=== PATIENT | female | born 1940 | race Caucasian/White ===

== ENCOUNTER 2016-08-11 15:30 | Emergency (ER) | payer BC ==
--- NOTE | 2016-08-11 15:35 | EDPHY ---
H & P HPI/ROS: CHIEF COMPLAINT: Stroke alert. HISTORY OF PRESENT ILLNESS: The patient is a 75-year-old female with history of atrial fibrillation on Coumadin who presents via EMS as a stroke alert. Onset of right-sided paralysis, facial droop, and aphasia at 1500 (30 minutes ago). According to her son, last INR 1 week ago was 1.4, and her Coumadin was increased. Per EMS, blood glucose was normal on arrival. No change in neuro status during transport. No prior history of CVA. On arrival she is not speaking or following commands. History is thus severely limited. REVIEW OF SYSTEMS: Unobtainable due to patient's clinical condition. Past Medical/Surgical History: Atrial fibrillation. Social History: Here with son. Physical Exam: General Appearance: Alert, looking around, not following commands. Left gaze preference Eyes: Pupils equal and round, no conjunctival pallor ENT, Mouth: Mucous membranes moist Neck: Normal inspection Respiratory: Lungs are clear to auscultation anteriorly Cardiovascular: Irregularly irregular rate and rhythm Gastrointestinal: Abdomen is soft, no apparent tenderness Neurological: Alert, right facial droop, left gaze preference, right hemiparesis, positive Babinski sign on right, No response to painful stimuli on right upper extremity or lower extremity Skin: Warm and dry Extremities: No swelling Psychiatric: Unable to determine Constitutional: Initial Vital Signs Temperature (C) 36.3 C 08/11/16 15:59 Heart Rate 88 08/11/16 15:59 Respiratory Rate 16 08/11/16 15:59 Blood Pressure 164/101 H 08/11/16 15:59 O2 Sat (%) 93 08/11/16 15:59 O2 Delivery Mode Nasal Cannula O2 (L/minute) 2 Allergies/Adverse Reactions: No Known Allergies Allergy (Unverified 08/11/16 16:00) Home Medications: Medication Instructions Recorded Atenolol 08/11/16 Coumadin 08/11/16 Lisinopril 08/11/16 Prozac 10 MG (*) 08/11/16 Wellbutrin Sr 08/11/16 Medical Decision Making - Diagnostics EKG Interpretation: EKG interpreted by me reveals atrial fibrillation, ventricular rate 83, left bundle branch block Imaging Results: Imaging Impressions Head CT 08/11/16 15:32 Impression: 1. Findings consistent with remote cortical infarct involving the right middle cerebral artery territory. 2. Atrophy and probable extensive white matter small vessel ischemic change evidenced by white matter low-attenuation. 3. Acute left maxillary sinusitis. Head CTA 08/11/16 15:55 Impression: 1. Minimal calcified plaque at the carotid bulb bilaterally without encroachment upon the lumen. 2. Tortuosity of the proximal CCA bilaterally as well as mid to distal ICA bilaterally below the skull base. 3. Thrombus in the left M1 segment of the middle cerebral artery with decreased contrast enhancement of peripheral MCA branches. 4. Early changes of acute infarct left insular cortex and anterior left temporal lobe to posterior frontal lobe. 5. Remote infarct right posterior temporal lobe to occipital lobe. Note: All calculations were performed using NASCET criteria. These findings were discussed by telephone with Dr. Aaliyah Pryor at 1622hrs. Neck CTA 08/11/16 15:55 Impression: 1. Minimal calcified plaque at the carotid bulb bilaterally without encroachment upon the lumen. 2. Tortuosity of the proximal CCA bilaterally as well as mid to distal ICA bilaterally below the skull base. 3. Thrombus in the left M1 segment of the middle cerebral artery with decreased contrast enhancement of peripheral MCA branches. 4. Early changes of acute infarct left insular cortex and anterior left temporal lobe to posterior frontal lobe. 5. Remote infarct right posterior temporal lobe to occipital lobe. Note: All calculations were performed using NASCET criteria. These findings were discussed by telephone with Dr. Aaliyah Pryor at 1622hrs. Imaging: Discussed imaging studies w/ meat sales and storage manager Radiologist ED Course/Re-evaluation: I met EMS on arrival and obtained a report from the ceramic designer. This 75-year-old woman presents as a stroke alert with 30 minutes of right-sided paralysis, facial droop, and aphasia. She does not follow my commands but is alert. She was sent to CT for immediate imaging. ISTAT obtained. An IV was established and labs ordered. Her son reports that her INR last week was 1.4 but she had her Coumadin dose was increased at that time. 1539: Consulted with Dr. Gatica, neurologist from [facility]. She will consult with the patient via the robot when she finishes her current case. 1551: Dr. Gatica consulting with patient via stroke robot. She recommends immediate CTA and this has been ordered. I consulted with the radiologist at this time. He reports no acute hemorrhage. I independently reviewed the patient' s CT on the PACS system. Please see Imaging section for radiologist report. 1558: NIH stroke score 27. Consulted with Dr. Gatica. She recommends TPA treatment if the INR is less than 1.7. If the patient has a large clot seen on CTA, she will be flown to [facility]. The patient's family is in agreement with this plan. I reviewed the patient's laboratory studies. INR low at 1.46. TPA ordered per stroke protocol. Medevac has been placed on standby. 1604: Consulted with Dr. Gatica. I have informed her of the INR results. She agrees with TPA administration and [facility] transfer of patient to [facility]. I discussed this plan with the patient's family at this time. 1611: Reassessed patient as she returned from CT. Her neurological exam is unchanged at this time. I discussed with her her transfer to [facility]. She raises her eyebrows and mumbles and seems to understand. 1623: CT-A results conveyed to me by Dr. Luis, radiology. TPA infusing, flight team in room to transport the pt to [facility]. Pt's neuro exam unchanged. BP trending higher, flight team will give Nicardipine IV prn. This patient utilized 45 minutes of critical care time exclusive of unbundled procedures. Differential Diagnosis: Altered mental status including but not limited to intracranial hemorrhage, hypoglycemia, infectious process, electrolyte abnormality, head injury and intoxicants. - Data Points Laboratory Results: Laboratory Results 08/11/16 15:43 08/11/16 15:43 08/11/16 08/11/16 08/11/16 15:43 15:43 15:37 WBC 9.09 10^3/uL 10^3/uL (3.80-9.50) RBC 4.78 10^6/uL 10^6/uL (4.18-5.33) Hgb 15.3 g/dL g/dL (12.6-16.3) Hct 46.4 % % (38.0-47.0) MCV 97.1 fL fL (81.5-99.8) MCH 32.0 pg pg (27.9-34.1) MCHC 33.0 g/dL g/dL (32.4-36.7) RDW 14.8 % % (11.5-15.2) Plt Count 280 10^3/uL 10^3/uL (150-400) MPV 11.0 fL fL (8.7-11.7) Neut % (Auto) 72.0 % % (39.3-74.2) Lymph % (Auto) 13.5 % L % (15.0-45.0) [place] % (Auto) 10.8 % % (4.5-13.0) Eos % (Auto) 3.1 % % (0.6-7.6) Baso % (Auto) 0.3 % % (0.3-1.7) Nucleat RBC Rel Count 0.0 % % (0.0-0.2) Absolute Neuts (auto) 6.54 10^3/uL H 10^3/uL (1.70-6.50) Absolute Lymphs (auto) 1.23 10^3/uL 10^3/uL (1.00-3.00) Absolute Monos (auto) 0.98 10^3/uL H 10^3/uL (0.30-0.80) Absolute Eos (auto) 0.28 10^3/uL 10^3/uL (0.03-0.40) Absolute Basos (auto) 0.03 10^3/uL 10^3/uL (0.02-0.10) Absolute Nucleated RBC 0.00 10^3/uL 10^3/uL (0-0.01) Immature Gran % 0.3 % % (0.0-1.1) Immature Gran # 0.03 10^3/uL 10^3/uL (0.00-0.10) PT 17.7 SEC H SEC (12.0-15.0) INR 1.46 H (0.83-1.16) APTT 31.6 SEC SEC (23.0-38.0) Sodium 139 mEq/L mEq/L (134-144) Potassium 3.9 mEq/L mEq/L (3.5-5.2) Chloride 101 mEq/L mEq/L (97-110) Carbon Dioxide 28 mEq/l mEq/l (22-31) Anion Gap 10 mEq/L mEq/L (8-16) BUN 18 mg/dL mg/dL (7-23) Creatinine 1.1 mg/dL H mg/dL (0.6-1.0) Estimated GFR 49 Glucose 170 mg/dL H mg/dL (70-100) Calcium 8.8 mg/dL mg/dL (8.5-10.4) Troponin I 0.015 ng/mL ng/mL (0-0.034) Medications Given: Discontinued Medications Alteplase, Recombinant (Activase) 8.76420 mg 0.09 mg/kg (8.29525 mg) IV ONCE ONE PRN Reason: Protocol Stop: 08/11/16 16:04 Last Admin: 08/11/16 16:18 Dose: 8.24326 mg Alteplase, Recombinant (Activase) 74.78418 mg 0.81 mg/kg (74.31697 mg) IV ONCE ONE PRN Reason: Protocol Stop: 08/11/16 16:04 Last Admin: 08/11/16 16:19 Dose: 74.37815 mg Sodium Chloride (Ns) 50 mls @ 0 mls/hr IV EDNOW ONE PRN Reason: Per Protocol Stop: 08/11/16 16:04 Last Admin: 08/11/16 17:01 Dose: 50 mls Departure - Departure Disposition: Acute [facility] Not [facility] Clinical Impression: CVA (cerebral vascular accident) Qualifiers: CVA mechanism: unspecified Qualified Code(s): I63.9 - Cerebral infarction, unspecified Condition: Critical Referrals: Patient,NotPresent [Unknown] - As per Instructions Report Scribed for: Aaliyah Pryor Report Scribed by: Jaguar Zhao Date of Report: 08/11/16 Time of Report: 15:35 Physician Review and Approval Statement: 08/11/16 15:35 Portions of this note were transcribed by a medical advisor. I personally performed a history, physical exam, medical decision making, and confirmed accuracy of information the transcribed note.
--- NOTE | 2016-08-11 15:52 | CPEKG ---
Heart Rate: 83 RR Interval: 723 QRSD Interval: 126 QT Interval: 380 QTC Interval: 447 QRS [place]: -51 T Wave [place]: 3 EKG Severity - ABNORMAL ECG - EKG Impression: ATRIAL FIBRILLATION, V-RATE 76-93 EKG Impression: LEFT BUNDLE BRANCH BLOCK Electronically Signed By: Rika Hernández 11-Aug-2016 20:05:46
[2016-08-11 15:53] LABS: % IMMATURE GRANULYOCYTES 0.3 % (0.0-1.1); ABSOLUTE IMMATURE GRANULOCYTES 0.03 10^3/uL (0.00-0.10); ADD DIFF? NO; ADD MORPH? NO; ADD SCAN? NO; ATYPICAL LYMPHOCYTE FLAG 0 (0-99); FRAGMENT RBC FLAG 0 (0-99); HEMATOCRIT 46.4 % (38.0-47.0); HEMOGLOBIN 15.3 g/dL (12.6-16.3); LEFT SHIFT FLG 0 (0-99); LIPEMIA HEMOLYSIS FLAG 80 (0-99); MEAN CELL VOLUME 97.1 fL (81.5-99.8); PLATELET CLUMPS FLAG 10 (0-99); PLATELET COUNT 280 10^3/uL (150-400); RED BLOOD CELL COUNT 4.78 10^6/uL (4.18-5.33); RED CELL DISTRIBUTION WIDTH 14.8 % (11.5-15.2)
[2016-08-11] MEDS ORDERED: IOPAMIDOL (ISOVUE 370) 100 ML BTL IV ONE (15:55)
[2016-08-11 16:01] LABS: INR 1.46 (0.83-1.16); PROTIME(PATIENT) 17.7 SEC (12.0-15.0)
[2016-08-11 16:02] LABS: ANION GAP 10 mEq/L (8-16); CALCIUM 8.8 mg/dL (8.5-10.4); CARBON DIOXIDE 28 mEq/l (22-31); CHLORIDE 101 mEq/L (97-110); CREATININE 1.1 mg/dL (0.6-1.0); GLOMERULAR FILTRATION RATE 49; GLUCOSE 170 mg/dL (70-100); POTASSIUM 3.9 mEq/L (3.5-5.2); SODIUM 139 mEq/L (134-144)
[2016-08-11 16:02] LABS: APTT 31.6 SEC (23.0-38.0)
[2016-08-11] MEDS ORDERED: NS 50 ML IV ONE (16:03)
[2016-08-11] MEDS ORDERED: ALTEPLASE 100 MG/100 ML VIAL IV ONE ×2 (16:03→16:04)
[2016-08-11] MEDS ORDERED: ALTEPLASE 1 MG/ML SYR IV ONE (16:03)
[2016-08-11 16:14] LABS: TROPONIN I 0.015 ng/mL (0-0.034)
[2016-08-11 16:27] VITALS: O2SAT 93
[2016-08-11 16:54] VITALS: PULSE 82; RESP 18
[2016-08-11 17:30] VITALS: TEMP 97.7
[2016-08-11 17:33] VITALS: BP 156/104
== END 2016-08-11 16:40 | disposition short-term general hospital (02) ==
LOC: EDUNIT#
DX: I63.9 Cerebral infarction, unspecified (principal); Z79.01 Long term (current) use of anticoagulants
CPT/HCPCS: 82947-QW; J2997; Q9967

== ENCOUNTER 2016-08-23 12:26 | Inpatient (IN) | payer BC, OTHER ==
--- NOTE | 2016-08-23 15:41 | GHP ---
[f rep st] HISTORY AND PHYSICAL POST ADMISSION PHYSICIAN EVALUATION AND REHABILITATION TREATMENT PLAN DATE OF ADMISSION: 08/23/2016 DATE OF EVALUATION: August 23, 2016. TIME OF EVALUATION: 1245. REFERRING FACILITY: [facility]. REFERRING PHYSICIAN: Dr. Oliveros IMPAIRMENT GROUP: 1.2 DATE OF ONSET: 08/11/2016. CONSULTING PHYSICIANS: There were consultations with Podiatry, Neurology, and Neuro-Radiology. 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 ETIOLOGIC DIAGNOSIS: Right body involvement (left brain). DATE OF SURGERY: 08/11/2016. HISTORY OF PRESENT ILLNESS: The patient presented initially to the [facility] emergency department approximately half an hour following onset of right-sided paralysis, facial droop, and aphasia. She has atrial fibrillation and was on warfarin. Her last INR approximately a week previously was 1.4, and her warfarin had been adjusted. She was not speaking and not following commands. She was treated with tPA thrombolysis and then transferred to [facility] for possible neurointerventional radiologic procedure. At the [facility] emergency department, head CT showed evidence of an old infarct involving the right middle cerebral artery as well as cerebral atrophy and probable extensive white matter small vessel ischemic disease. CT angiogram showed minimal calcified plaque in the carotid bulbs bilaterally, a thrombus in the left M1 segment of the middle cerebral artery, and early changes of acute infarct in the left insular cortex and anterior left temporal lobe to posterior left frontal lobe, and a remote infarct of the right posterior temporal lobe to the occipital lobe. At [facility], she had an interventional radiologic procedure which opened up the left middle cerebral artery occlusion. Her NIH stroke scale on presentation at [facility] was 28. Subsequently it was 23 following her procedure at [facility]. Imaging after her procedure with an MRI showed scattered left MCA cerebrovascular accident. Also noted was an old right MCA infarct with encephalomalacia. She continued to have global aphasia and right-sided weakness. She was working with physical, occupational, and speech therapy and was ready for inpatient rehabilitation. PRECAUTIONS: She is a fall risk and she has aspiration precautions. ACTIVE COMORBIDITIES: She has the tier 2 comorbidity of dysphagia. She has the tier 3 comorbidity of morbid obesity and diabetes mellitus with manifestations. PAST MEDICAL HISTORY: 1. Dyslipidemia. 2. Atrial fibrillation. 3. Diabetes mellitus type 2. 4. Depression. 5. Hypertension. 6. Obstructive sleep apnea. 7. Chronic right lower extremity venous ulcers. 8. Prior cerebrovascular accident. PRE-HOSPITAL MEDICATIONS: 1. Atenolol. 2. Warfarin. 3. Lisinopril. 4. Fluoxetine. 5. Bupropion. ADMISSION MEDICATIONS: 1. Acetaminophen 650 mg p.o. q.4 hours p.r.n. 2. Apixaban 5 mg p.o. b.i.d. twice daily. 3. Atenolol 100 mg p.o. daily. 4. Bupropion SR 150 mg p.o. daily. 5. Docusate 100 mg p.o. b.i.d. 6. Fluticasone 2 sprays each nares b.i.d. 7. Lisinopril 40 mg p.o. daily. 8. Hydralazine 100 mg p.o. t.i.d. 9. Fluoxetine 40 mg p.o. daily. 10. Oxycodone 5 mg p.o. q.4 hours p.r.n. 11. Polyethylene glycol 17 g p.o. daily. 12. Triamcinolone 1 application b.i.d. 13. Desitin maximum strength 1 application q.1 hour p.r.n. perirectal pain. ALLERGIES: There are no known drug allergies. FAMILY HISTORY: Noncontributory. 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 She had an acute depression and stopped working approximately 5 weeks ago and had since moved to [place] to be near her daughter. Subsequently she had her stroke. She is a nonsmoker. REVIEW OF SYSTEMS: Very limited due to difficulties with receptive and expressive language. She nods yes consistently to all questions whether they are phrased in a positive or negative way. PHYSICAL EXAM: VITAL SIGNS: Blood pressure is 141/85, heart rate is 90, respiratory rate is 20, oxygenation is 96% on 2 L, temperature is 36.4 degrees centigrade. Her weight is 93.2 kg for a body mass index of 36.4. GENERAL: This is an obese woman, chronically ill-appearing, cooperative, appears to be in mild distress. HEENT: Extraocular movements are intact. Pupils are equal, round, and reactive to light. Dentition is in good condition. Mucous membranes are moist. She will not cooperate with request to open her mouth. NECK: Supple. HEART: There is an irregularly irregular rhythm with no murmurs , rubs, or gallops. LUNGS: Clear to auscultation bilaterally. ABDOMEN: Soft , nontender, nondistended with normoactive bowel sounds and no hepatosplenomegaly. EXTREMITIES: There is no cyanosis, clubbing, or edema. She has brown discoloration of the lower legs for approximately 15-20 cm above the ankles. Radial pulses are 2+ bilaterally. Dorsalis pedis pulse is 2+ on the left and trace on the right. SKIN: Without decubitus ulcers. She has considerable erythema and excoriation in her gluteal fold and perirectal are. She is oozing stool. She has a 1.5 cm raised patch of thickened cornified skin on her right plantar foot below the 1st metatarsophalangeal joint. There are streaks of purple discoloration on the lateral lower leg, without open areas. NEUROLOGIC: She is alert. Orientation could not be tested. She appears to be able to move all extremities. She does not follow commands for most requests; however, she appears to have normal hand range ecologist strength in the left and the right hands. She is able to arise from supine to seated with minimal assistance and some impulsivity. Due to inconsistent responses, it is unclear whether sensation is intact. Deep tendon reflexes are 2+ bilaterally at the biceps, the right patella and the right Achilles tendons and could not be elicited at the left patella and Achilles tendons. Plantar reflexes upgoing on the left and indeterminate on the right. She appears to have some ataxia of the right upper extremity. CURRENT LEVEL OF FUNCTION: Per the pre-admission screen. Regarding diet, feeding, and swallowing, she was on a level 3 dysphagia diet. She required contact guard assistance to supervision for eating. She required setup and she used a loaded spoon. For grooming, she needed assistance. For bathing, she needed assistance. For dressing, she needed assistance. For bed mobility, she needed minimal assistance. For transfers, she needed minimal assistance for a squat pivot transfer using a front-wheeled walker. Her balance was poor. Her endurance was poor. She was able to ambulate 70 feet with 1 loss of balance and minimal assistance. Regarding communication, she was noted to have global aphasia. For cognition, she needed tactile cues as well as verbal cues. IMPRESSION: Mrs. Valdovinos is a 75-year-old woman with a history of cerebrovascular disease and atrial fibrillation who suffered what appears to be a second cerebrovascular accident on 08/11/2016. She received thrombolysis at [facility] and was transported to [facility] where she received treatment with neurointerventional radiology and thrombectomy. She appears to have regained some movement on the right side of her body but remains globally aphasic, and she is quite debilitated. She has comorbid conditions of hypertension for which medications were added and titrated, depression for which medications were titrated, atrial fibrillation for which she has been begun on apixaban with the discontinuation of warfarin as she had her stroke while she was on warfarin. She is appropriate for inpatient rehabilitation where she will benefit from speech and language pathology regarding her aphasia and communication issues, from physical therapy to optimize mobility, and occupational therapy to optimize activities of daily living. She is in need of nursing care regarding fall risk, bowel and bladder, skin integrity, and medication administration and education. She is in need of the care of a physician regarding hypertension, atrial fibrillation, diabetes mellitus type 2 and glycemic control, and deep venous thrombosis risk. She will receive therapy with physical therapy, occupational therapy, and speech and language pathology for 60 minutes per day for each discipline on 5-7 days per week. Her expected duration of stay is 4 weeks. It is expected that when she discharges she will continue to benefit from home health services including speech and language pathology, occupational therapy, physical therapy, and a stroke support group. ASSESSMENT AND PLAN: 1. Left middle cerebral artery cerebrovascular accident with right weakness and ataxia, and global aphasia. Physical and occupational therapy to optimize mobility and activities of daily living, and speech and language pathology regarding communication issues. 2. Atrial fibrillation. Continue rate control with atenolol and anticoagulation with apixaban. 3. Hypertension. Hydralazine has been added, and lisinopril may have been titrated. She will be assessed for adequate blood pressure control. Potentially atenolol would be replaced with b.i.d. metoprolol for better 24- hour control. 4. History of dyslipidemia with rash when she was treated with lovastatin. Will have a dietary consult. 5. Diabetes mellitus type 2. Check hemoglobin A1c. Will have metabolic panel tested in the morning, and we will thus determine her fasting blood sugar. Can consider insulin if needed or metformin if indicated depending on lab results. 6. Perirectal skin excoriation. She has orders from the hospital for Desitin as a moisture barrier and pain reliever and triamcinolone topical to reduce inflammation. These will be continued. Her polyethylene glycol will be changed to p.r.n., and a fiber supplement will be added to try to achieve better stool bulk and continence. She will have regular nursing care to maintain hygiene. 7. Depression. Both fluoxetine and bupropion appear to have been increased in the hospital. It is difficult on exam today to distinguish between pain, distress regarding recent medical events, and depression. She will be monitored , and it is hoped that an accurate picture will emerge as her communication abilities improve. 8. Obstructive sleep apnea. We will need to discuss with the family regarding whether she was managed with a CPAP mask or other device, and this should be implemented if possible. 9. Likely peripheral vascular disease with reduced pedal pulses on the right and reported history of right lower extremity venous ulcer. She will be monitored carefully, and her skin will be protected. 10. Code status. She was DNR at [facility], and this status will be maintained. 11. Anticoagulation. Apixaban should be adequate to prevent DVTs. Duration of stay is estimated at approximately 4 weeks. Her goal is to return home with her daughter and family. It is hoped that in 4 weeks she can achieve standby assist to contact guard assist with mobility and ADLs, contact guard to supervision with communication and medication management, and she and her family will require neurologic education as well as medication education for return to home. /[id number]/MODL MTDD
[2016-08-23] MEDS: ACETAMINOPHEN 325 MG TAB PO PRN (18:12)
[2016-08-23] MEDS: DOCUSATE SODIUM 100 MG CAP PO SCH (21:13)
[2016-08-23] MEDS: APIXABAN 5 MG TAB PO SCH (21:15)
[2016-08-23] MEDS: TRIAMCINOLONE 0.1% 15 GM CRTUBE TP SCH (21:16)
[2016-08-23] MEDS: FLUTICASONE NASAL 120 SPRAYS/16 GM MDI EACHNARE SCH (21:45)
[2016-08-24] MEDS: oxyCODONE IR 5 MG TAB PO PRN ×3 (05:37→19:42)
--- NOTE | 2016-08-24 08:02 | WOCRNPDOC ---
WOCRN Advanced Assessment Note - Skin Integrity Problem, Advanced Assess Generalized Perineum Incont Assoc Dermatitis Dressing Type: Open to Air Exudate Amount: Scant Exudate Color: Red Exudate Characteristic(s): Bloody Dru Wound Tissue: Swollen, Denuded Dru Wound Swelling: Moderate Wound Bed Color: Red Wound Bed Constitution: Smooth Tissue Skin Integrity Problem Comment: Severe incontinence-associated dermatitis w/ partial-thickness tissue loss noted in gluteal cleft up to dru-anal area, and extending anteriorly onto distal labia. Tissue is denuded and bloody, and patient cried out when site was assessed. agronomy supervisor Karli contacted Dr. Nicole for an order for topical 2% lidocaine jelly. Initial plan is to mix this w/ Calazime (50/50) and apply it to all areas of denudement. Wound RN will follow up on Monday 08/28 to assess again.
[2016-08-24 08:08] LABS: ADD DIFF? YES; ADD MORPH? NO; ADD SCAN? NO; ATYPICAL LYMPHOCYTE FLAG 20 (0-99); FRAGMENT RBC FLAG 0 (0-99); HEMATOCRIT 48.1 % (38.0-47.0); HEMOGLOBIN 15.8 g/dL (12.6-16.3); LEFT SHIFT FLG 10 (0-99); LIPEMIA HEMOLYSIS FLAG 80 (0-99); MEAN CELL HEMOGLOBIN CONCENTR. 32.8 g/dL (32.4-36.7); MEAN CELL VOLUME 97.4 fL (81.5-99.8); MEAN PLATELET VOLUME 11.1 fL (8.7-11.7); PLATELET CLUMPS FLAG 0 (0-99); PLATELET COUNT 343 10^3/uL (150-400); RED BLOOD CELL COUNT 4.94 10^6/uL (4.18-5.33); RED CELL DISTRIBUTION WIDTH 15.1 % (11.5-15.2)
[2016-08-24 08:25] LABS: ALANINE AMINOTRANSFERASE 27 IU/L (9-52); ALBUMIN 3.1 g/dL (3.5-5.0); ALKALINE PHOSPHATASE 88 IU/L (38-126); ANION GAP 11 mEq/L (8-16); ASPARTATE AMINOTRANSFERASE 26 IU/L (14-46); CALCIUM 9.2 mg/dL (8.5-10.4); CARBON DIOXIDE 30 mEq/l (22-31); CHLORIDE 100 mEq/L (97-110); CREATININE 0.9 mg/dL (0.6-1.0); GLOMERULAR FILTRATION RATE > 60; GLUCOSE 106 mg/dL (70-100); POTASSIUM 4.2 mEq/L (3.5-5.2); SODIUM 141 mEq/L (134-144); TOTAL PROTEIN 6.9 g/dL (6.3-8.2)
--- NOTE | 2016-08-24 08:49 | SOAPPROG ---
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 Improved motor function but dense global aphasia. Physical and occupational therapy to optimize mobility and activities of daily living, and speech and language pathology regarding communication issues. * Atrial fibrillation. Continue rate control with atenolol and anticoagulation with apixaban. * Hypertension. Hydralazine was added,at the hospital, 100 mg TID and she's on high-dose atenolol and max dose lisinopril. BP is above target but may be high due to pain. Consider addition of diuretic if she's maintaining normal PO hydration (slightly dry on BMP today 08/24/16), or amlodipine, if BP remains high as perirectal pain improves. * History of dyslipidemia with rash when she was treated with lovastatin. Will have a dietary consult. * Diabetes mellitus type 2. Check hemoglobin A1c. Fasting BS 106 today . Consider metformin. * Perirectal skin excoriation. Appreciate assistance of wound nurse. Continue Calazime/lidocaine mixture. Change polyethylene glycol to PRN and add fiber supplement. * Depression. Both fluoxetine and bupropion appear to have been increased in the hospital. It is difficult on exam to distinguish between pain, distress regarding recent medical events, and depression. She will be monitored, and it is hoped that an accurate picture will emerge as her communication abilities improve.\ * Obstructive sleep apnea. We will need to discuss with the family regarding whether she was managed with a CPAP mask or other device, and this should be implemented if possible. * Likely peripheral vascular disease with reduced pedal pulses on the right and reported history of right lower extremity venous ulcer. She will be monitored carefully, and her skin will be protected. * Code status. She was DNR at [facility], and this status will be maintained. * Anticoagulation. Apixaban is adequate to prevent DVTs. Duration of stay is estimated at approximately 4 weeks. Her goal is to return home with her daughter and family. It is hoped that in 4 weeks she can achieve standby assist to contact guard assist with mobility and ADLs, contact guard to supervision with communication and medication management, and she and her family will require neurologic education as well as medication education for return to home. 05/05/17 09:37 Subjective: In moderate distress periodically. Has painat excoriated area perirectal and gluteal fold. Otherwise inconsistent responses. Objective: Vital Signs Temp Pulse Resp BP Pulse Ox 37.0 C 92 20 152/87 H 95 08/24/16 06:09 08/24/16 06:09 08/24/16 06:09 08/24/16 06:09 08/24/16 06:09 Laboratory Results 08/24/16 06:00 08/24/16 06:00 08/23/16 08/24/16 08/25/16 05:59 05:59 05:59 Intake Total 400 Output Total 940 Balance -540 Physical Exam - Physical Exam General Appearance: WD/WN, alert, moderate distress, obese Respiratory: normal breath sounds, No crackles, No rhonchi, No wheezing Cardiac/Chest: systolic murmur, irregularly irregular, No edema Abdomen: normal bowel sounds, non-tender, soft, No distended Neuro/Psych: alert, aphasia (Few incomprehensible monosyllabic vocalizations. Can follow one step commands.), other (Moves all extremities. Rolls to one side independently.) ICD10 Worksheet Patient Problems: Problems Problem Status Onset DM2 (diabetes mellitus, type 2) Acute HTN (hypertension) Acute Aphasia due to recent cerebrovascular accident Acute Cerebrovascular accident (CVA) due to occlusion of left middle cerebral artery Acute
--- NOTE | 2016-08-24 08:49 | PDOREHIP ---
Admission IRF-[facility] - Admission - 3 Day Assessment Period Admission Date/Day 1: 08/23/16 Day 2: 08/24/16 Day 3: 08/25/16 - Active Diagnoses Comorbidities and Co-existing Conditions at Admission: 43197. PVD or PAD, 93060. DM (e.g. diabetic retinopathy, nephropathy, and neuropathy) - Skin Conditions Unhealed Pressure Ulcer (1 or more/Stage 1 or >)-Admission: 0. No
[2016-08-24] MEDS ORDERED: POLYETHYLENE GLYCOL 3350 17 GM PKT PO SCH (09:00)
[2016-08-24] MEDS: LIDOCAINE 2% JELLY 5 ML TUBE TP PRN ×5 (09:18→16:43)
[2016-08-24] MEDS: APIXABAN 5 MG TAB PO SCH ×2 (09:42→21:20)
[2016-08-24] MEDS: ATENOLOL 50 MG TAB PO SCH (09:43)
[2016-08-24] MEDS: buPROPion SR 150 MG TAB PO SCH (09:44)
[2016-08-24] MEDS: FLUoxetine 20 MG CAP PO SCH (09:45)
[2016-08-24] MEDS: FLUTICASONE NASAL 120 SPRAYS/16 GM MDI EACHNARE SCH ×2 (09:46→22:34)
[2016-08-24] MEDS: LISINOPRIL 40 MG TAB PO SCH (10:01)
[2016-08-24] MEDS: DOCUSATE SODIUM 100 MG CAP PO SCH (10:03)
[2016-08-24] MEDS: TRIAMCINOLONE 0.1% 15 GM CRTUBE TP SCH ×2 (10:04→22:36)
[2016-08-24] MEDS: ACETAMINOPHEN 325 MG TAB PO PRN (10:24)
[2016-08-24] MEDS: BENEFIBER/NUTRISOURCE FIBER PKT 1 EACH PO SCH ×2 (11:38→21:20)
[2016-08-24 12:37] LABS: LARGE PLATELETS PRESENT; TOXIC GRANULATION PRESENT
[2016-08-24 16:55] LABS: PLATELET ESTIMATE ADEQUATE (ADEQ)
[2016-08-24 17:35] LABS: COLOR AMBER; LEUKOCYTE ESTERASE,URINE NEGATIVE (NEGATIVE); NITRITE,URINE NEGATIVE (NEGATIVE)
[2016-08-24 17:52] LABS: BACTERIA 3+ /hpf (NONE SEEN); MUCUS 1+ /lpf (NONE-1+)
[2016-08-24 17:53] LABS: RBC,URINE NONE SEEN /hpf (0-3)
[2016-08-25] MEDS: oxyCODONE IR 5 MG TAB PO PRN ×3 (05:10→13:41)
[2016-08-25] MEDS: LIDOCAINE 2% JELLY 5 ML TUBE TP PRN ×2 (07:35→08:47)
[2016-08-25] MEDS: DESITIN MAX STRENGTH OINTMENT TP PRN ×3 (08:47→20:34)
[2016-08-25] MEDS: FLUoxetine 20 MG CAP PO SCH (08:54)
[2016-08-25] MEDS: APIXABAN 5 MG TAB PO SCH ×2 (08:55→20:29)
[2016-08-25] MEDS: buPROPion SR 150 MG TAB PO SCH (08:55)
[2016-08-25] MEDS: ATENOLOL 50 MG TAB PO SCH (08:57)
[2016-08-25] MEDS: LISINOPRIL 40 MG TAB PO SCH (08:58)
[2016-08-25] MEDS: BENEFIBER/NUTRISOURCE FIBER PKT 1 EACH PO SCH ×2 (08:59→20:45)
[2016-08-25] MEDS: FLUTICASONE NASAL 120 SPRAYS/16 GM MDI EACHNARE SCH ×2 (09:00→20:34)
[2016-08-25] MEDS: ACETAMINOPHEN 325 MG TAB PO PRN (10:30)
[2016-08-25] MEDS: TRIAMCINOLONE 0.1% 15 GM CRTUBE TP SCH ×3 (10:30→19:52)
--- NOTE | 2016-08-25 11:31 | SOAPPROG ---
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 Improved motor function but dense global aphasia. Physical and occupational therapy to optimize mobility and activities of daily living, and speech and language pathology regarding communication issues. * Atrial fibrillation. Continue rate control with atenolol and anticoagulation with apixaban. * Hypertension. MOST RECENT BP THIS AM WAS 133/69 SO WILL CONTINUE TO MONITOR FOR NOW. Hydralazine was added,at the hospital, 100 mg TID and she's on high- dose atenolol and max dose lisinopril. BP is above target but may be high due to pain. Consider addition of diuretic if she's maintaining normal PO hydration (slightly dry on BMP today 08/24/16), or amlodipine, if BP remains high as perirectal pain improves. * History of dyslipidemia with rash when she was treated with lovastatin. Will have a dietary consult. * Diabetes mellitus type 2. Hg A1c PENDING THIS AM. Fasting BS 106 today . Consider metformin. * Perirectal skin excoriation. D/C CORTISONE CREAM AND BEGIN CLOTRIMAZOLE FOR SUSPECTED YEAST INFECTION. Appreciate assistance of wound nurse. Continue Calazime/lidocaine mixture. Change polyethylene glycol to PRN and add fiber supplement. * Depression. Both fluoxetine and bupropion appear to have been increased in the hospital. It is difficult on exam to distinguish between pain, distress regarding recent medical events, and depression. She will be monitored, and it is hoped that an accurate picture will emerge as her communication abilities improve.\ * Obstructive sleep apnea. We will need to discuss with the family regarding whether she was managed with a CPAP mask or other device, and this should be implemented if possible. * Likely peripheral vascular disease with reduced pedal pulses on the right and reported history of right lower extremity venous ulcer. She will be monitored carefully, and her skin will be protected. * Code status. She was DNR at [facility], and this status will be maintained. * Anticoagulation. Apixaban is adequate to prevent DVTs. Plan: 08/25/16 11:34 Subjective: EXPRESSIVE AND RECEPTIVE APHASIA. INDICATES SEVERE PAIN IN PERIANAL AND PERIVAGINAL REGION. Objective: Vital Signs Temp Pulse Resp BP Pulse Ox 36.7 C 76 17 133/69 H 94 05/06/17 07:23 08/25/16 08:57 08/25/16 07:23 08/25/16 08:58 08/25/16 07:23 Laboratory Results 08/24/16 06:00 08/24/16 06:00 08/24/16 08/25/16 08/26/16 05:59 05:59 05:59 Intake Total 400 1110 Output Total 940 400 Balance -540 710 Physical Exam - Physical Exam General Appearance: moderate distress (moderste distress due to dru anal pain) , obese EENT: PERRL/EOMI Respiratory: lungs clear, normal breath sounds Cardiac/Chest: edema, No JVD Abdomen: normal bowel sounds, non-tender, soft, No rebound Skin: normal color, other (excoriation around dru anal and perivaginal region. ) Neuro/Psych: aphasia (expressive greater than receptive. Will move all four extremities on command. ) ICD10 Worksheet Patient Problems: Problems Problem Status Onset Aphasia due to recent cerebrovascular accident Acute Cerebrovascular accident (CVA) due to occlusion of left middle cerebral artery Acute DM2 (diabetes mellitus, type 2) Acute HTN (hypertension) Acute
[2016-08-25] MEDS: CLOTRIMAZOLE 1% 15 GM CRTUBE TP SCH ×2 (15:44→20:33)
[2016-08-25] MEDS ORDERED: 1/2 NS 1,000 ML IV ONE (16:30)
[2016-08-26 08:16] LABS: ANION GAP 10 mEq/L (8-16); CALCIUM 8.7 mg/dL (8.5-10.4); CARBON DIOXIDE 30 mEq/l (22-31); CHLORIDE 99 mEq/L (97-110); CREATININE 1.1 mg/dL (0.6-1.0); GLOMERULAR FILTRATION RATE 49; GLUCOSE 110 mg/dL (70-100); POTASSIUM 4.1 mEq/L (3.5-5.2); SODIUM 139 mEq/L (134-144)
[2016-08-26] MEDS: LISINOPRIL 40 MG TAB PO SCH (09:37)
[2016-08-26] MEDS: FLUoxetine 20 MG CAP PO SCH (09:37)
[2016-08-26] MEDS: APIXABAN 5 MG TAB PO SCH ×2 (09:37→21:36)
[2016-08-26] MEDS: ATENOLOL 50 MG TAB PO SCH (09:38)
[2016-08-26] MEDS: buPROPion SR 150 MG TAB PO SCH (09:38)
[2016-08-26] MEDS: TRIAMCINOLONE 0.1% 15 GM CRTUBE TP SCH ×2 (09:56→22:49)
[2016-08-26] MEDS: BENEFIBER/NUTRISOURCE FIBER PKT 1 EACH PO SCH ×2 (10:08→21:36)
[2016-08-26] MEDS: FLUTICASONE NASAL 120 SPRAYS/16 GM MDI EACHNARE SCH ×2 (10:09→21:48)
--- NOTE | 2016-08-26 10:27 | SOAPPROG ---
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 ([place], [place]). Improved motor function but dense global aphasia. Physical and occupational therapy to optimize mobility and activities of daily living, and speech and language pathology regarding communication issues. * Atrial fibrillation. Continue rate control with atenolol and anticoagulation with apixaban. * Hypertension. BP THIS AM WAS 114/75 SO WILL CONTINUE TO MONITOR FOR NOW. Hydralazine was added,at the hospital, 100 mg TID and she's on high-dose atenolol and max dose lisinopril. BP is above target but may be high due to pain. Consider addition of diuretic if she's maintaining normal PO hydration ( slightly dry on BMP today 08/24/16), or amlodipine, if BP remains high as perirectal pain improves. * History of dyslipidemia with rash when she was treated with lovastatin. Will have a dietary consult. * Diabetes mellitus type 2. Hg A1c PENDING THIS AM. Fasting BS 106 today . Consider metformin. * Perirectal skin excoriation. D/C CORTISONE CREAM AND BEGIN CLOTRIMAZOLE FOR SUSPECTED YEAST INFECTION. Appreciate assistance of wound nurse. Continue Calazime/lidocaine mixture. Change polyethylene glycol to PRN and add fiber supplement. * Depression. Both fluoxetine and bupropion appear to have been increased in the hospital. It is difficult on exam to distinguish between pain, distress regarding recent medical events, and depression. She will be monitored, and it is hoped that an accurate picture will emerge as her communication abilities improve.\ * Obstructive sleep apnea. We will need to discuss with the family regarding whether she was managed with a CPAP mask or other device, and this should be implemented if possible. * Likely peripheral vascular disease with reduced pedal pulses on the right and reported history of right lower extremity venous ulcer. She will be monitored carefully, and her skin will be protected. * Code status. She was DNR at [facility], and this status will be maintained. * Anticoagulation. Apixaban is adequate to prevent DVTs. Plan: 08/25/16 11:34 08/26/16 10:28 Subjective: NURSING REPORTS THAT THIS AMs BLADDER SCAN SHOWED 360 CCs since IVF started yesterday afternoon. Objective: Vital Signs Temp Pulse Resp BP Pulse Ox 36.7 C 89 17 114/75 92 08/26/16 05:36 08/26/16 09:38 08/26/16 05:36 08/26/16 09:38 08/26/16 05:36 Laboratory Results 08/24/16 06:00 08/25/16 11:59 08/25/16 08/26/16 08/27/16 05:59 05:59 05:59 Intake Total 1110 1370 760 Output Total 400 665 Balance 710 705 760 Physical Exam - Physical Exam General Appearance: alert, no apparent distress, obese Respiratory: lungs clear, normal breath sounds Cardiac/Chest: No edema Abdomen: normal bowel sounds, non-tender, soft, No rebound Rectal: other (no suprapubic tenderness) Neuro/Psych: aphasia, speech abnormalities, other (spontaneously moves all four extremities. Motor exam unchanged from previous) ICD10 Worksheet Patient Problems: Problems Problem Status Onset Aphasia due to recent cerebrovascular accident Acute Cerebrovascular accident (CVA) due to occlusion of left middle cerebral artery Acute DM2 (diabetes mellitus, type 2) Acute HTN (hypertension) Acute
[2016-08-26] MEDS: CLOTRIMAZOLE 1% 15 GM CRTUBE TP SCH ×2 (11:53→21:48)
[2016-08-26] MEDS: DESITIN MAX STRENGTH OINTMENT TP PRN ×2 (11:53→21:49)
[2016-08-26] MEDS ORDERED: BISACODYL 10 MG SUPP PR ONE ×2 (17:00→22:00)
[2016-08-27 04:08] LABS: HEMOGLOBIN A1C 6.3 % (4.0-6.0)
[2016-08-27] MEDS: buPROPion SR 150 MG TAB PO SCH (07:41)
[2016-08-27] MEDS: APIXABAN 5 MG TAB PO SCH ×2 (07:41→20:40)
[2016-08-27] MEDS: ATENOLOL 50 MG TAB PO SCH (07:42)
[2016-08-27] MEDS: FLUTICASONE NASAL 120 SPRAYS/16 GM MDI EACHNARE SCH ×2 (07:45→20:43)
[2016-08-27] MEDS: FLUoxetine 20 MG CAP PO SCH (07:45)
[2016-08-27] MEDS: CLOTRIMAZOLE 1% 15 GM CRTUBE TP SCH ×2 (07:45→20:41)
[2016-08-27] MEDS: LISINOPRIL 40 MG TAB PO SCH (07:47)
[2016-08-27] MEDS: ACETAMINOPHEN 325 MG TAB PO PRN ×2 (07:47→15:55)
[2016-08-27] MEDS: BENEFIBER/NUTRISOURCE FIBER PKT 1 EACH PO SCH ×2 (07:47→20:40)
[2016-08-27] MEDS: TRIAMCINOLONE 0.1% 15 GM CRTUBE TP SCH ×3 (08:09→22:13)
--- NOTE | 2016-08-27 12:50 | SOAPPROG ---
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. Improved motor function but dense global aphasia. TODAY'S FIM SCORE IS 39. USING WALKER TO AMBULATE 200 FEET CGA. RIGHT SIDED NEGLECT. TFERS MIN A. UE/LE DRESSING MIN A /MOD A * Atrial fibrillation. Continue rate control with atenolol and anticoagulation with apixaban. * Hypertension. BP THIS AM 136/98. LAST I/O WAS 1185/960. WILL BEGIN HCTZ 25MG QAM. Hydralazine was added,at the hospital, 100 mg TID and she's on high- dose atenolol and max dose lisinopril. BP is above target but may be high due to pain. Consider addition of diuretic if she's maintaining normal PO hydration (slightly dry on BMP today 08/24/16), or amlodipine, if BP remains high as perirectal pain improves. * History of dyslipidemia with rash when she was treated with lovastatin. Will have a dietary consult. * Diabetes mellitus type 2. Hg A1c PENDING THIS AM. Fasting BS 106 today . Consider metformin. * Perirectal skin excoriation. SHE IS STILL HAVING SOME STOOL LEAKAGE PER NURSING SO WILL OBTAIN KUB TO CHECK FOR IMPACTION, EXTENT ON STOOL RETENTION. D /C CORTISONE CREAM AND BEGIN CLOTRIMAZOLE FOR SUSPECTED YEAST INFECTION. Appreciate assistance of wound nurse. Continue Calazime/lidocaine mixture. Change polyethylene glycol to PRN and add fiber supplement. * Depression. Both fluoxetine and bupropion appear to have been increased in the hospital. It is difficult on exam to distinguish between pain, distress regarding recent medical events, and depression. She will be monitored, and it is hoped that an accurate picture will emerge as her communication abilities improve.\ * Obstructive sleep apnea. We will need to discuss with the family regarding whether she was managed with a CPAP mask or other device, and this should be implemented if possible. * Likely peripheral vascular disease with reduced pedal pulses on the right and reported history of right lower extremity venous ulcer. She will be monitored carefully, and her skin will be protected. * Code status. She was DNR at [facility], and this status will be maintained. * Anticoagulation. Apixaban is adequate to prevent DVTs. * 20 MIN TEAM MEETING TODAY-PLEASE SEE SEPARATE STAFFING NOTE COMPLETED BY THIS EXAMINER Plan: 08/25/16 11:34 08/26/16 10:28 08/27/16 12:51 08/27/16 13:03 Subjective: Patient seems more comfortable this am. No problems per nursing staff. O Objective: Vital Signs Temp Pulse Resp BP Pulse Ox 36.7 C 92 16 136/98 H 90 L 08/27/16 05:48 08/27/16 07:42 08/27/16 05:48 08/27/16 07:49 08/27/16 05:48 Microbiology 08/24/16 17:47 Urine Culture - Final Urine,Clean Catch Two [place] Types Laboratory Results 08/24/16 06:00 08/25/16 11:59 08/26/16 08/27/16 08/28/16 05:59 05:59 05:59 Intake Total 1370 1185 118 Output Total 665 960 0 Balance 705 225 118 Physical Exam - Physical Exam General Appearance: alert, no apparent distress, obese Respiratory: chest non-tender, lungs clear, decreased breath sounds (due to patient non-cooperative with performing deep inhalations), No normal breath sounds Abdomen: normal bowel sounds, non-tender, soft Skin: normal color, warm/dry Extremities: No swelling, No Jovanny's sign Neuro/Psych: aphasia (Neurological exam stable. Global aphasia), motor weakness , cognition abnormalities, speech abnormalities ICD10 Worksheet Patient Problems: Problems Problem Status Onset Aphasia due to recent cerebrovascular accident Acute Cerebrovascular accident (CVA) due to occlusion of left middle cerebral artery Acute DM2 (diabetes mellitus, type 2) Acute HTN (hypertension) Acute
[2016-08-27] MEDS: POLYETHYLENE GLYCOL 3350 17 GM PKT PO PRN (20:40)
[2016-08-27] MEDS: LIDOCAINE 2% JELLY 5 ML TUBE TP PRN (20:42)
[2016-08-27] MEDS: DESITIN MAX STRENGTH OINTMENT TP PRN (20:46)
[2016-08-28] MEDS: FLUoxetine 20 MG CAP PO SCH (08:37)
[2016-08-28] MEDS: BENEFIBER/NUTRISOURCE FIBER PKT 1 EACH PO SCH (08:37)
[2016-08-28] MEDS: APIXABAN 5 MG TAB PO SCH ×2 (08:40→20:35)
[2016-08-28] MEDS: LISINOPRIL 40 MG TAB PO SCH (08:40)
[2016-08-28] MEDS: ATENOLOL 50 MG TAB PO SCH (08:41)
[2016-08-28] MEDS: HYDROCHLOROTHIAZIDE 12.5 MG CAP PO SCH (08:41)
[2016-08-28] MEDS: buPROPion 75 MG TAB PO SCH ×2 (08:42→20:35)
[2016-08-28] MEDS: LIDOCAINE 2% JELLY 5 ML TUBE TP PRN (09:22)
[2016-08-28] MEDS: CLOTRIMAZOLE 1% 15 GM CRTUBE TP SCH (09:29)
[2016-08-28] MEDS: FLUTICASONE NASAL 120 SPRAYS/16 GM MDI EACHNARE SCH ×2 (09:30→20:37)
[2016-08-28] MEDS: TRIAMCINOLONE 0.1% 15 GM CRTUBE TP SCH (09:31)
--- NOTE | 2016-08-28 12:21 | SOAPPROG ---
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 Improved motor function but dense global aphasia. FIM 39 on 08/27. Using walker to ambulate 200 ft CGA, right neglect (also [place] on right side). Xfer with min A, min-mod A UE/LE dressing. 08/28/2016- 25 minutes was spent on the floor in care of the patient, the majority was spent in the counseling and coordination of care regarding hearing impairment and best ways to communicate with the patient given her medical background (discussed with family). UCX normal verenice, no treatment. Normal KUB, no constipation. Participation improving with treatment of rash, and thus decreased pain. * Atrial fibrillation. Continue rate control with atenolol and anticoagulation with apixaban. * Hypertension. Hydralazine was added,at the hospital, 100 mg TID and she's on high-dose atenolol and max dose lisinopril. BP is above target but may be high due to pain. Consider addition of diuretic if she's maintaining normal PO hydration (slightly dry on BMP today 08/24/16), or amlodipine, if BP remains high as perirectal pain improves. HCTZ started by Dr. Gomez on 08/27/2016. * History of dyslipidemia with rash when she was treated with lovastatin. Will have a dietary consult. * Diabetes mellitus type 2. Hg A1c 6.3, monitor. * Perirectal skin excoriation. Clotrimazole helping, stopping steroid cream. Appreciate assistance of wound nurse. Continue Calazime/lidocaine mixture. Change polyethylene glycol to PRN and add fiber supplement. KUB negative for impaction. * Depression. Both fluoxetine and bupropion appear to have been increased in the hospital. It is difficult on exam to distinguish between pain, distress regarding recent medical events, and depression. She will be monitored, and it is hoped that an accurate picture will emerge as her communication abilities improve. * Obstructive sleep apnea. We will need to discuss with the family regarding whether she was managed with a CPAP mask or other device, and this should be implemented if possible. * Likely peripheral vascular disease with reduced pedal pulses on the right and reported history of right lower extremity venous ulcer. She will be monitored carefully, and her skin will be protected. * Code status. She was DNR at [facility], and this status will be maintained. * Anticoagulation. Apixaban is adequate to prevent DVTs. * Dispo: ELOS 4 weeks. 08/28/16 12:19 08/28/16 12:22 Subjective: CC: groin rash pain No acute events overnight. seen with family in the room, who noted that her pain and participation are much better with treatment of the rash. Noted that she is [place] on the right side, and talking on the left may be better. 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 No new neuro symptoms reported by family . Yes/ no was unreliable with patient due to gloabal aphasia, but seemed to endorse improved pain level. Objective: Vital Signs Temp Pulse Resp BP Pulse Ox 36.7 C 80 16 122/85 H 91 L 08/27/16 19:42 08/28/16 08:41 08/28/16 08:00 08/28/16 08:41 08/28/16 08:00 Laboratory Results 08/24/16 06:00 08/25/16 11:59 08/27/16 08/28/16 08/29/16 05:59 05:59 05:59 Intake Total 1185 1308 Output Total 960 820 Balance 225 488 Physical Exam - Physical Exam General Appearance: alert, no apparent distress, obese EENT: No scleral icterus (R), No scleral icterus (L) Respiratory: lungs clear, normal breath sounds, No respiratory distress, No accessory muscle use Cardiac/Chest: normal peripheral pulses, regular rate, rhythm, No edema Abdomen: non-tender, soft Skin: normal color, warm/dry, No cyanosis Extremities: No swelling Neuro/Psych: alert, normal mood/affect, motor weakness (Could not reliably ascertain, appears to have some thien-inattention on the right, but could not tell for sure. She would spontaneously move her right arm. ), sensory deficit ( could not ascertain light touch or thien inattention due to aphasia. ), speech abnormalities (single words, approx 50% intelligible, yes/no not reliable. ) ICD10 Worksheet Patient Problems: Problems Problem Status Onset Aphasia due to recent cerebrovascular accident Acute Cerebrovascular accident (CVA) due to occlusion of left middle cerebral artery Acute DM2 (diabetes mellitus, type 2) Acute HTN (hypertension) Acute
--- NOTE | 2016-08-28 15:33 | WOCRNPDOC ---
WOCRN Advanced Assessment Note - Skin Integrity Problem, Advanced Assess Generalized Perineum Incont Assoc Dermatitis Dressing Type: Open to Air Exudate Amount: None Exudate Characteristic(s): None Integumentary Issue Intervention: Barrier Cream Applied (3M Advanced Skin Protection applied) Dru Wound Tissue: Raw, Denuded Dru Wound Swelling: Mild Wound Bed Color: Red Skin Integrity Problem Comment: Partial, bordering on full-thickness, tissue loss noted on both sides of anus, w/ red, friable wound bed noted. There is significant improvement since assessment on 08/24, particularly on the distal labia, which is now only mildly denuded. Applied 3M Advanced Skin Protection to open areas on dru-anal area today at the bedside w/ refrigerating engineer head Marina. This treatment is an acrylate product, which forms a barrier between any moisture and the skin. Explained to RN that no products containing lotions or creams can be used while this product is in place, because it will deactivate the treatment and allow moisture to penetrate. Signs also posted in room explaining that only bath cloths or washcloths may be used. Wound RN will follow up on Thursday 08/31 to reassess site. In the meantime, orders for Calazime, Lidocaine, and clotrimazole have been put on hold until Thursday 08/31.
--- NOTE | 2016-08-28 16:40 | SOAPPROG ---
SOAP Progress Note Assessment/Plan: Assessment: 08/28/16: d/c guar gum as she may not have sufficient fluid intake to benefit. Trial of bethanechol for voiding. 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 Improved motor function but dense global aphasia. Physical and occupational therapy to optimize mobility and activities of daily living, and speech and language pathology regarding communication issues. * Atrial fibrillation. Continue rate control with atenolol and anticoagulation with apixaban. * Hypertension. Hydralazine was added,at the hospital, 100 mg TID and she's on high-dose atenolol and max dose lisinopril. BP is above target but may be high due to pain. Consider addition of diuretic if she's maintaining normal PO hydration (slightly dry on BMP today 08/24/16), or amlodipine, if BP remains high as perirectal pain improves. * History of dyslipidemia with rash when she was treated with lovastatin. Will have a dietary consult. * Diabetes mellitus type 2. Check hemoglobin A1c. Fasting BS 106 today . Consider metformin. * Perirectal skin excoriation. Appreciate assistance of wound nurse. Continue Calazime/lidocaine mixture. Change polyethylene glycol to PRN and add fiber supplement. * Depression. Both fluoxetine and bupropion appear to have been increased in the hospital. It is difficult on exam to distinguish between pain, distress regarding recent medical events, and depression. She will be monitored, and it is hoped that an accurate picture will emerge as her communication abilities improve.\ * Obstructive sleep apnea. We will need to discuss with the family regarding whether she was managed with a CPAP mask or other device, and this should be implemented if possible. * Likely peripheral vascular disease with reduced pedal pulses on the right and reported history of right lower extremity venous ulcer. She will be monitored carefully, and her skin will be protected. * Code status. She was DNR at [facility], and this status will be maintained. * Anticoagulation. Apixaban is adequate to prevent DVTs. Duration of stay is estimated at approximately 4 weeks. Her goal is to return home with her daughter and family. It is hoped that in 4 weeks she can achieve standby assist to contact guard assist with mobility and ADLs, contact guard to supervision with communication and medication management, and she and her family will require neurologic education as well as medication education for return to home. 08/28/16 16:35 Subjective: Nurse reports no voiding; needing straight cath several times a day. ALso now with constipation, needed disimpaction. Perineal skin much improved; Objective: Vital Signs Temp Pulse Resp BP Pulse Ox 36.7 C 80 16 122/85 H 91 L 08/27/16 19:42 08/28/16 08:41 08/28/16 08:00 08/28/16 08:41 08/28/16 08:00 Laboratory Results 08/24/16 06:00 08/25/16 11:59 08/27/16 08/28/16 08/29/16 05:59 05:59 05:59 Intake Total 1185 1308 120 Output Total 960 820 425 Balance 225 488 -305 ICD10 Worksheet Patient Problems: Problems Problem Status Onset Aphasia due to recent cerebrovascular accident Acute Cerebrovascular accident (CVA) due to occlusion of left middle cerebral artery Acute DM2 (diabetes mellitus, type 2) Acute HTN (hypertension) Acute
[2016-08-28] MEDS: BETHANECHOL 10 MG TAB PO SCH (20:35)
[2016-08-28] MEDS: POLYETHYLENE GLYCOL 3350 17 GM PKT PO PRN (20:36)
[2016-08-29] MEDS: BETHANECHOL 10 MG TAB PO SCH ×4 (06:19→20:54)
[2016-08-29] MEDS: LISINOPRIL 40 MG TAB PO SCH (08:26)
[2016-08-29] MEDS: ATENOLOL 50 MG TAB PO SCH (08:28)
[2016-08-29] MEDS: buPROPion 75 MG TAB PO SCH ×2 (08:28→20:55)
[2016-08-29] MEDS: APIXABAN 5 MG TAB PO SCH ×2 (08:28→20:55)
[2016-08-29] MEDS: HYDROCHLOROTHIAZIDE 12.5 MG CAP PO SCH (08:28)
[2016-08-29] MEDS: FLUoxetine 20 MG CAP PO SCH (08:29)
[2016-08-29] MEDS: ACETAMINOPHEN 325 MG TAB PO PRN ×2 (09:37→18:08)
--- NOTE | 2016-08-29 12:39 | SOAPPROG ---
SOAP Progress Note Assessment/Plan: Assessment: 08/28/16: d/c guar gum as she may not have sufficient fluid intake to benefit. Trial of bethanechol for voiding. 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. Improved motor function but dense global aphasia. FIM 39 as of . Ambulates 20' FWW CGA. R neglect. T'fers min A. UB/LB dressing min A/ mod A.Continue physical and occupational therapy to optimize mobility and activities of daily living, and speech and language pathology regarding communication issues. * Atrial fibrillation. Continue rate control with atenolol and anticoagulation with apixaban. * Hypertension. Adequate control on hydralazine, lisinopril, atenolol and HCTZ. Hydralazime may be contributing to urinary retention. Taper and D/C over several days starting with change to 50 mg TID from 100 mg on 08/29/16; add amlodipine 5 mg QHS on 08/29/16. Plan to titrate amlodipine as needed with taper of hydralazine. * Urinary retention. Has not responded to bethanechol at 10 mg QID; increase to 20 mg QID on 08/29/16. D/C if not effective. Taper and D/C hydralazine as above. * History of dyslipidemia with rash when she was treated with lovastatin. Will have a dietary consult. * Diabetes mellitus type 2. Hemoglobin A1c 6.3. No indication for medication. Dietary consult. * Perirectal skin excoriation. Appreciate assistance of wound nurse. Much improved; continue current management. * Depression. Both fluoxetine and bupropion appear to have been increased in the hospital. It is difficult on exam to distinguish between pain, distress regarding recent medical events, and depression. She will be monitored, and it is hoped that an accurate picture will emerge as her communication abilities improve. * Obstructive sleep apnea. We will need to discuss with the family regarding whether she was managed with a CPAP mask or other device, and this should be implemented if possible. * Likely peripheral vascular disease with reduced pedal pulses on the right and reported history of right lower extremity venous ulcer. She will be monitored carefully, and her skin will be protected. * Code status. She was DNR at [facility], and this status will be maintained. * Anticoagulation. Apixaban is adequate to prevent DVTs. Duration of stay is estimated at approximately 4 weeks. Her goal is to return home with her daughter and family. It is hoped that in 4 weeks she can achieve standby assist to contact guard assist with mobility and ADLs, contact guard to supervision with communication and medication management, and she and her family will require neurologic education as well as medication education for return to home. 08/29/16 12:19 Subjective: Persistent urinary retention with intermittent catheterization per nursing. She appears to be without complaint, but has expressive aphasia. Denies pain, cough, dyspnea, f/c. Objective: Vital Signs Temp Pulse Resp BP Pulse Ox 37.1 C 80 16 127/87 H 93 08/29/16 06:40 08/29/16 08:28 08/29/16 06:40 08/29/16 08:28 08/29/16 06:40 Laboratory Results 08/24/16 06:00 08/25/16 11:59 08/28/16 08/29/16 08/30/16 05:59 05:59 05:59 Intake Total 1308 720 120 Output Total 820 2000 Balance 488 -1280 120 Physical Exam - Physical Exam General Appearance: WD/WN, alert, no apparent distress, obese Respiratory: normal breath sounds, No crackles, No rhonchi, No wheezing Cardiac/Chest: regular rate, rhythm, No edema Skin: normal color, warm/dry Neuro/Psych: alert, normal mood/affect, aphasia (Expressive & receptive) ICD10 Worksheet Patient Problems: Problems Problem Status Onset Aphasia due to recent cerebrovascular accident Acute Cerebrovascular accident (CVA) due to occlusion of left middle cerebral artery Acute DM2 (diabetes mellitus, type 2) Acute HTN (hypertension) Acute
[2016-08-29] MEDS: FLUTICASONE NASAL 120 SPRAYS/16 GM MDI EACHNARE SCH ×2 (14:46→20:55)
[2016-08-29] MEDS: amLODIPine BESYLATE 5 MG TAB PO SCH (20:55)
[2016-08-30] MEDS: BETHANECHOL 10 MG TAB PO SCH ×4 (06:26→20:29)
[2016-08-30] MEDS: APIXABAN 5 MG TAB PO SCH ×2 (08:43→20:29)
[2016-08-30] MEDS: ATENOLOL 50 MG TAB PO SCH (08:43)
[2016-08-30] MEDS: buPROPion 75 MG TAB PO SCH ×2 (08:43→20:29)
[2016-08-30] MEDS: FLUoxetine 20 MG CAP PO SCH (08:45)
[2016-08-30] MEDS: LISINOPRIL 40 MG TAB PO SCH (08:46)
[2016-08-30] MEDS: HYDROCHLOROTHIAZIDE 12.5 MG CAP PO SCH (08:46)
[2016-08-30] MEDS: FLUTICASONE NASAL 120 SPRAYS/16 GM MDI EACHNARE SCH ×2 (09:07→20:37)
--- NOTE | 2016-08-30 10:30 | SOAPPROG ---
SOAP Progress Note Assessment/Plan: Assessment: 08/28/16: d/c guar gum as she may not have sufficient fluid intake to benefit. Trial of bethanechol for voiding. 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 Improved motor function but dense global aphasia. FIM 39 as of . Ambulates 20' FWW CGA. R neglect. T'fers min A. UB/LB dressing min A/ mod A.Continue physical and occupational therapy to optimize mobility and activities of daily living, and speech and language pathology regarding communication issues. * Atrial fibrillation. Continue rate control with atenolol and anticoagulation with apixaban. * Hypertension. AM BP 131/77 . ON HYDRALAZINE TAPER, CURRENT DOSE 25MG TID. Adequate control on hydralazine, lisinopril, atenolol and HCTZ. Hydralazime may be contributing to urinary retention. Taper and D/C over several days starting with change to 50 mg TID from 100 mg on 08/29/16; add amlodipine 5 mg QHS on 08/29/16. Plan to titrate amlodipine as needed with taper of hydralazine. * Urinary retention. WILL OBTAIN U/A, C&S. Has not responded to bethanechol at 10 mg QID; increase to 20 mg QID on 08/29/16. D/C if not effective. Taper and D /C hydralazine as above. * History of dyslipidemia with rash when she was treated with lovastatin. Will have a dietary consult. * Diabetes mellitus type 2. Hemoglobin A1c 6.3. No indication for medication. Dietary consult. * Perirectal skin excoriation. Appreciate assistance of wound nurse. Much improved; continue current management. * Depression. Both fluoxetine and bupropion appear to have been increased in the hospital. It is difficult on exam to distinguish between pain, distress regarding recent medical events, and depression. She will be monitored, and it is hoped that an accurate picture will emerge as her communication abilities improve. * Obstructive sleep apnea. We will need to discuss with the family regarding whether she was managed with a CPAP mask or other device, and this should be implemented if possible. * Likely peripheral vascular disease with reduced pedal pulses on the right and reported history of right lower extremity venous ulcer. She will be monitored carefully, and her skin will be protected. * Code status. She was DNR at [facility], and this status will be maintained. * Anticoagulation. Apixaban is adequate to prevent DVTs. Plan: 08/25/16 11:34 08/26/16 10:28 08/27/16 12:51 08/27/16 13:03 08/30/16 10:30 Subjective: No c/o per nursing staff. Patient cannot verbalize compliants or problems due to severe expressive aphasia. Objective: Vital Signs Temp Pulse Resp BP Pulse Ox 36.8 C 86 16 131/77 H 94 08/30/16 06:26 08/30/16 08:43 08/30/16 06:26 08/30/16 08:46 08/30/16 06:26 Laboratory Results 08/24/16 06:00 08/25/16 11:59 08/29/16 08/30/16 08/31/16 05:59 05:59 05:59 Intake Total 720 193 118 Output Total 1999 4508 378 [facility] -1280 -[phone] Physical Exam - Physical Exam General Appearance: alert, obese Respiratory: crackles, No respiratory distress, No stridor, No wheezing Cardiac/Chest: No edema, No JVD Abdomen: non-tender, soft, other (no suprapubic tenderness) Skin: warm/dry Neuro/Psych: alert, aphasia ICD10 Worksheet Patient Problems: Problems Problem Status Onset Aphasia due to recent cerebrovascular accident Acute Cerebrovascular accident (CVA) due to occlusion of left middle cerebral artery Acute DM2 (diabetes mellitus, type 2) Acute HTN (hypertension) Acute
[2016-08-30 15:29] LABS: COLOR YELLOW; LEUKOCYTE ESTERASE,URINE TRACE (NEGATIVE); NITRITE,URINE NEGATIVE (NEGATIVE)
[2016-08-30 15:31] LABS: BACTERIA 3+ /hpf (NONE SEEN); MUCUS TRACE /lpf (NONE-1+); YEAST PRESENT /hpf (NONE SEEN)
[2016-08-30] MEDS: hydrALAZINE 25 MG TAB PO SCH ×2 (16:29→22:10)
[2016-08-30] MEDS: amLODIPine BESYLATE 5 MG TAB PO SCH (20:30)
[2016-08-30] MEDS: CLOTRIMAZOLE 1% 15 GM CRTUBE TP SCH (20:32)
[2016-08-31] MEDS: BETHANECHOL 10 MG TAB PO SCH ×4 (05:17→19:58)
--- NOTE | 2016-08-31 07:30 | WOCRNPDOC ---
WOCRN Advanced Assessment Note - Skin Integrity Problem, Advanced Assess Generalized Perineum Incont Assoc Dermatitis Dressing Type: Open to Air Exudate Amount: None Exudate Characteristic(s): None Integumentary Issue Intervention: Barrier Cream Applied (Calvilon Advanced Skin Protection wand, applied by wound RN) Mary Wound Tissue: Blanching, Erythema Mary Wound Swelling: Mild Wound Bed Color: Red Wound Bed Constitution: Granulation Tissue, Smooth Tissue Wound Edges: Epithelizing Site Odor: None Skin Integrity Problem Comment: Mary-anal wounds significantly improved since assessment on 08/28 after first application of Calvilon Advanced skin protectant. There remains a wound to the left of her anus, w/ granulation tissue noted throughout and epithelialization along margins. Her perineum and distal labia are now only mildly red. Assessed site w/ wholesale diamond broker Patricia, and plan of care discussed. 2nd application of Calvilon ASP this morning, and orders to resume incontinence-associated dermaitis protocol on Saturday 09/02, which will consist of Calazime to any open areas and cleansing w/ GIOVANNA dimethicone wipes. Until then, nursing will continue to cleanse w/ washcloth and water only to ensure the skin protectant remains activated and intact over wound. Wound RN will round on patient again on Thursday 09/07.
[2016-08-31] MEDS: POLYETHYLENE GLYCOL 3350 17 GM PKT PO PRN (08:07)
[2016-08-31] MEDS: APIXABAN 5 MG TAB PO SCH ×2 (08:09→19:58)
[2016-08-31] MEDS: ATENOLOL 50 MG TAB PO SCH (08:09)
[2016-08-31] MEDS: buPROPion 75 MG TAB PO SCH ×2 (08:10→19:59)
[2016-08-31] MEDS: hydrALAZINE 25 MG TAB PO SCH (08:11)
[2016-08-31] MEDS: FLUoxetine 20 MG CAP PO SCH (08:11)
[2016-08-31] MEDS: HYDROCHLOROTHIAZIDE 12.5 MG CAP PO SCH (08:13)
[2016-08-31] MEDS: LISINOPRIL 40 MG TAB PO SCH (08:14)
[2016-08-31] MEDS: FLUTICASONE NASAL 120 SPRAYS/16 GM MDI EACHNARE SCH ×2 (09:05→21:29)
--- NOTE | 2016-08-31 11:45 | SOAPPROG ---
SOAP Progress Note Assessment/Plan: Assessment: 08/28/16: d/c guar gum as she may not have sufficient fluid intake to benefit. Trial of bethanechol for voiding. 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 Improved motor function but dense global aphasia. FIM 39 as of . Ambulates 20' FWW CGA, improving. R neglect. T'fers min A. UB/LB dressing min A/mod A. Continue physical and occupational therapy to optimize mobility and activities of daily living, and speech and language pathology regarding communication issues. * Atrial fibrillation. Continue rate control with atenolol and anticoagulation with apixaban. * Hypertension. Tapered hydralazine over 3 days due to urinary retention; added amlodipine. D/C hydralazine today 08/31/16. Continue atenolol, HCTZ, lisinopril. May need increase in amlodipine. Continue to monitor. * Urinary retention. Resolved with taper of hydralazine; D/C hydralazine today 08/31/16. Unclear if bethanechol was helpful; change form 20 mg QID to 10 mgQID ; D/C tomorrow and observe for return of retention. D/C bethanechol 09/01/16 and observe for continued normal voiding.. * History of dyslipidemia with rash when she was treated with lovastatin. Will have a dietary consult. * Diabetes mellitus type 2. Hemoglobin A1c 6.3. No indication for medication. Dietary consult. * Perirectal skin excoriation. Appreciate assistance of wound nurse. Much improved; continue current management. * Depression. Both fluoxetine and bupropion appear to have been increased in the hospital. Affect appears improved.. * Obstructive sleep apnea. We will need to discuss with the family regarding whether she was managed with a CPAP mask or other device, and this should be implemented if possible. * Likely peripheral vascular disease with reduced pedal pulses on the right and reported history of right lower extremity venous ulcer. She will be monitored carefully, and her skin will be protected. * Code status. She was DNR at [facility], and this status will be maintained. * Anticoagulation. Apixaban is adequate to prevent DVTs. Duration of stay is estimated at approximately 4 weeks. Her goal is to return home with her daughter and family. It is hoped that in 4 weeks she can achieve standby assist to contact guard assist with mobility and ADLs, contact guard to supervision with communication and medication management, and she and her family will require neurologic education as well as medication education for return to home. 08/31/16 11:46 Subjective: Difficult to get history due to aphasia. Working with OT who indicates she has no dysuria, communicating with writing on whiteboard. Patient inconsistently seems to understand. Objective: Vital Signs Temp Pulse Resp BP Pulse Ox 36.5 C 87 16 129/76 H 95 08/31/16 05:22 08/31/16 08:09 08/31/16 05:22 08/31/16 08:14 08/31/16 05:22 Laboratory Results 08/24/16 06:00 08/25/16 11:59 08/30/16 08/31/16 09/01/16 05:59 05:59 05:59 Intake Total 620 1018 120 Output Total 1375 2050 300 [facility] -369 -1032 -180 Physical Exam - Physical Exam General Appearance: WD/WN, alert, no apparent distress, obese Respiratory: normal breath sounds (limited exam as she does not comply with request to take deep breaths.), No crackles, No rhonchi, No wheezing Cardiac/Chest: systolic murmur, irregularly irregular Skin: normal color, warm/dry Neuro/Psych: alert, normal mood/affect, abnormal gait (wide-based and en-bloc turning, with FWW), aphasia (Expressive and receptive) ICD10 Worksheet Patient Problems: Problems Problem Status Onset Aphasia due to recent cerebrovascular accident Acute Cerebrovascular accident (CVA) due to occlusion of left middle cerebral artery Acute DM2 (diabetes mellitus, type 2) Acute HTN (hypertension) Acute
[2016-08-31] MEDS: amLODIPine BESYLATE 5 MG TAB PO SCH ×2 (19:57→19:58)
[2016-09-01] MEDS: BETHANECHOL 10 MG TAB PO SCH (05:47)
[2016-09-01] MEDS: APIXABAN 5 MG TAB PO SCH ×2 (08:36→20:45)
[2016-09-01] MEDS: buPROPion 75 MG TAB PO SCH ×2 (08:36→20:45)
[2016-09-01] MEDS: FLUoxetine 20 MG CAP PO SCH (08:36)
[2016-09-01] MEDS: HYDROCHLOROTHIAZIDE 12.5 MG CAP PO SCH (08:44)
[2016-09-01] MEDS: LISINOPRIL 40 MG TAB PO SCH (08:45)
[2016-09-01] MEDS: ATENOLOL 50 MG TAB PO SCH (08:45)
[2016-09-01] MEDS: FLUTICASONE NASAL 120 SPRAYS/16 GM MDI EACHNARE SCH ×2 (10:12→20:45)
--- NOTE | 2016-09-01 16:07 | SOAPPROG ---
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 Improved motor function but dense global aphasia. FIM 39 as of . Ambulates 20' FWW CGA, improving. R neglect. T'fers min A. UB/LB dressing min A/mod A. Continue physical and occupational therapy to optimize mobility and activities of daily living, and speech and language pathology regarding communication issues. * Atrial fibrillation. Continue rate control with atenolol and anticoagulation with apixaban. * Hypertension. Tapered hydralazine over 3 days due to urinary retention; added amlodipine. D/C hydralazine 08/31/16. Continue atenolol, HCTZ, lisinopril. BP normotensive 09/01. Continue to monitor. * Urinary retention. Resolved with taper of hydralazine; D/C hydralazine . Unclear if bethanechol was helpful; change form 20 mg QID to 10 mgQID; D/C' ed today without changes in urinary function. UA and culture with 100k enterococcus but unlikely infective, will CTM * History of dyslipidemia with rash when she was treated with lovastatin. Will have a dietary consult. * Diabetes mellitus type 2. Hemoglobin A1c 6.3. No indication for medication. Dietary consult. * Perirectal skin excoriation. Appreciate assistance of wound nurse. Much improved; continue current management. * Depression. Both fluoxetine and bupropion appear to have been increased in the hospital. Affect appears improved.. * Obstructive sleep apnea. We will need to discuss with the family regarding whether she was managed with a CPAP mask or other device, and this should be implemented if possible. * Likely peripheral vascular disease with reduced pedal pulses on the right and reported history of right lower extremity venous ulcer. She will be monitored carefully, and her skin will be protected. * Code status. She was DNR at [facility], and this status will be maintained. * Anticoagulation. Apixaban is adequate to prevent DVTs. Duration of stay is estimated at approximately 4 weeks. Her goal is to return home with her daughter and family. It is hoped that in 4 weeks she can achieve standby assist to contact guard assist with mobility and ADLs, contact guard to supervision with communication and medication management, and she and her family will require neurologic education as well as medication education for return to home. Subjective: No events overnight. RN denies urinary dysfunction or abnormal urine output. Pt without any signs of discomfort or distress. Objective: Vital Signs Temp Pulse Resp BP Pulse Ox 35.8 C L 84 16 116/68 90 L 09/01/16 08:38 09/01/16 08:45 09/01/16 08:38 09/01/16 08:45 09/01/16 08:38 Laboratory Results 08/24/16 06:00 08/25/16 11:59 08/31/16 09/01/16 09/02/16 05:59 05:59 05:59 Intake Total 1018 1070 236 Output Total 2050 800 Balance -1032 270 236 - Pending Discharge Pending Discharge Within 24 Hours: No Pending Discharge Within 48 Hours: No Physical Exam - Physical Exam General Appearance: alert, no apparent distress Neck: supple Respiratory: lungs clear, normal breath sounds Cardiac/Chest: regular rate, rhythm Abdomen: normal bowel sounds, non-tender, soft Skin: normal color, warm/dry Neuro/Psych: alert, normal mood/affect, speech abnormalities (severe mixed aphasia) ICD10 Worksheet Patient Problems: Problems Problem Status Onset Aphasia due to recent cerebrovascular accident Acute Cerebrovascular accident (CVA) due to occlusion of left middle cerebral artery Acute DM2 (diabetes mellitus, type 2) Acute HTN (hypertension) Acute
--- NOTE | 2016-09-02 09:22 | SOAPPROG ---
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 Improved motor function but dense global aphasia. FIM 39 as of . Ambulates 20' FWW CGA, improving. R neglect. T'fers min A. UB/LB dressing min A/mod A. Continue physical and occupational therapy to optimize mobility and activities of daily living, and speech and language pathology regarding communication issues. * Atrial fibrillation. Continue rate control with atenolol and anticoagulation with apixaban. * Hypertension. Tapered hydralazine over 3 days due to urinary retention; added amlodipine. D/C hydralazine 08/31/16. Continue atenolol, HCTZ, lisinopril. BP normotensive 09/01. Continue to monitor. * Urinary retention. Resolved with taper of hydralazine; D/C hydralazine . Unclear if bethanechol was helpful; change form 20 mg QID to 10 mgQID; D/C' ed 09/01 without changes in urinary function. UA and culture with 100k enterococcus but unlikely infective, will CTM * History of dyslipidemia with rash when she was treated with lovastatin. Will have a dietary consult. * Diabetes mellitus type 2. Hemoglobin A1c 6.3. No indication for medication. Dietary consult. * Perirectal skin excoriation. Appreciate assistance of wound nurse. Much improved; continue current management. * Depression. Both fluoxetine and bupropion appear to have been increased in the hospital. Affect appears improved.. * Obstructive sleep apnea. We will need to discuss with the family regarding whether she was managed with a CPAP mask or other device, and this should be implemented if possible. * Likely peripheral vascular disease with reduced pedal pulses on the right and reported history of right lower extremity venous ulcer. She will be monitored carefully, and her skin will be protected. * Code status. She was DNR at [facility], and this status will be maintained. * Anticoagulation. Apixaban is adequate to prevent DVTs. Duration of stay is estimated at approximately 4 weeks. Her goal is to return home with her daughter and family. It is hoped that in 4 weeks she can achieve standby assist to contact guard assist with mobility and ADLs, contact guard to supervision with communication and medication management, and she and her family will require neurologic education as well as medication education for return to home. Subjective: No events. RN notes normal UOP without visual abnormalities or notable distress from [place]. Objective: Vital Signs Temp Pulse Resp BP Pulse Ox 36.6 C 77 16 138/77 H 86 L 09/02/16 05:11 09/02/16 05:11 09/02/16 05:11 09/02/16 05:11 09/02/16 05:11 Microbiology 08/30/16 15:29 Urine Culture - Final Urine,Clean Catch Enterococcus Faecalis Gram Neg Demetrio Lactose Therapist Phys One [place] Type Laboratory Results 08/24/16 06:00 08/25/16 11:59 09/01/16 09/02/16 09/03/16 05:59 05:59 05:59 Intake Total 1070 776 Output Total 800 1425 Balance 270 -649 - Pending Discharge Pending Discharge Within 24 Hours: No Pending Discharge Within 48 Hours: No Physical Exam - Physical Exam General Appearance: alert, no apparent distress Neck: supple Respiratory: lungs clear, normal breath sounds Cardiac/Chest: regular rate, rhythm Abdomen: normal bowel sounds, non-tender, soft Skin: normal color, warm/dry Extremities: No calf tenderness Neuro/Psych: alert, normal mood/affect, cognition abnormalities, speech abnormalities (global aphasia (mostly expressive)) ICD10 Worksheet Patient Problems: Problems Problem Status Onset Aphasia due to recent cerebrovascular accident Acute Cerebrovascular accident (CVA) due to occlusion of left middle cerebral artery Acute DM2 (diabetes mellitus, type 2) Acute HTN (hypertension) Acute
[2016-09-02] MEDS: APIXABAN 5 MG TAB PO SCH ×2 (10:07→22:25)
[2016-09-02] MEDS: ATENOLOL 50 MG TAB PO SCH (10:08)
[2016-09-02] MEDS: FLUoxetine 20 MG CAP PO SCH (10:08)
[2016-09-02] MEDS: FLUTICASONE NASAL 120 SPRAYS/16 GM MDI EACHNARE SCH ×2 (10:12→22:25)
[2016-09-02] MEDS: buPROPion 75 MG TAB PO SCH ×2 (10:12→22:25)
[2016-09-02] MEDS: HYDROCHLOROTHIAZIDE 12.5 MG CAP PO SCH ×2 (10:13→10:42)
[2016-09-02] MEDS: LISINOPRIL 40 MG TAB PO SCH (10:14)
[2016-09-02] MEDS: amLODIPine BESYLATE 5 MG TAB PO SCH (22:24)
[2016-09-03] MEDS: LISINOPRIL 40 MG TAB PO SCH (08:31)
[2016-09-03] MEDS: HYDROCHLOROTHIAZIDE 12.5 MG CAP PO SCH (08:39)
[2016-09-03] MEDS: APIXABAN 5 MG TAB PO SCH ×2 (08:39→20:40)
[2016-09-03] MEDS: ATENOLOL 50 MG TAB PO SCH (08:39)
[2016-09-03] MEDS: buPROPion 75 MG TAB PO SCH ×2 (08:41→20:39)
[2016-09-03] MEDS: FLUoxetine 20 MG CAP PO SCH (08:41)
[2016-09-03] MEDS: FLUTICASONE NASAL 120 SPRAYS/16 GM MDI EACHNARE SCH ×2 (08:46→20:38)
--- NOTE | 2016-09-03 12:42 | SOAPPROG ---
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 Improved motor function but dense global aphasia. FIM 39 as of 08/27/16 ; increased to 62 as of 09/03/16. Ambulates 400' and does 6 stairs TEST TECH. R neglect. Needs physical cueing for ADLs and especially complex tasks such as bathing. Continue physical and occupational therapy to optimize mobility and activities of daily living, and speech and language pathology regarding communication issues. * Global aphasia: decreased comprehension both written and verbal. Perseverative. Continue RN INTERN. * Atrial fibrillation. Continue rate control with atenolol and anticoagulation with apixaban. * Hypertension. TD/C hydralazine today 08/31/16. Continue atenolol, HCTZ, lisinopril amlodipine. Adequate control. Continue to monitor. * Urinary retention. Resolved with taper of hydralazine; D/C hydralazine today 08/31/16. Unclear if bethanechol was helpful was titrated to 20 mg QID and then tapered and D/C'd. * Urinary incontinence, appears to be resolved with scheduled toileting. Chronic/stable issues: * History of dyslipidemia with rash when she was treated with lovastatin. Will have a dietary consult. * Diabetes mellitus type 2. Hemoglobin A1c 6.3. No indication for medication. Dietary consult. * Perirectal skin excoriation. Appreciate assistance of wound nurse. Much improved; continue current management. * Depression. Both fluoxetine and bupropion appear to have been increased in the hospital. Affect appears improved.. * Obstructive sleep apnea. We will need to discuss with the family regarding whether she was managed with a CPAP mask or other device, and this should be implemented if possible. * Likely peripheral vascular disease with reduced pedal pulses on the right and reported history of right lower extremity venous ulcer. She will be monitored carefully, and her skin will be protected. * Code status. She was DNR at [facility], and this status will be maintained. * Anticoagulation. Apixaban is adequate to prevent DVTs. Attended staffing, 15 min. D/W case mgmt, nursing, PT, OT, RN INTERN, groundwater monitoring technician, pharmacist. LOS [id number] per insurance. Family conference 09/05/16. 09/03/16 13:13 Objective: Vital Signs Temp Pulse Resp BP Pulse Ox 36.6 C 84 18 123/76 H 93 09/02/16 20:00 09/03/16 08:39 09/02/16 20:00 09/03/16 08:39 09/02/16 20:00 Laboratory Results 08/24/16 06:00 08/25/16 11:59 09/02/16 09/03/16 09/04/16 05:59 05:59 05:59 Intake Total 776 572 480 Output Total 1427 650 400 Balance -649 -78 80 - Time Spent With Patient Time Spent With Patient: Greater than 35 minutes floor time today, including more than 50% of time in coordination of care during staffing meeting, and counseling patient. Physical Exam - Physical Exam General Appearance: WD/WN, alert, no apparent distress, obese Respiratory: normal breath sounds, No crackles, No rhonchi, No wheezing Cardiac/Chest: irregularly irregular, No edema Skin: normal color, warm/dry Neuro/Psych: alert, normal mood/affect, aphasia (Receptive and expressive) ICD10 Worksheet Patient Problems: Problems Problem Status Onset Aphasia due to recent cerebrovascular accident Acute Cerebrovascular accident (CVA) due to occlusion of left middle cerebral artery Acute DM2 (diabetes mellitus, type 2) Acute HTN (hypertension) Acute
[2016-09-03] MEDS: amLODIPine BESYLATE 5 MG TAB PO SCH (20:39)
[2016-09-04] MEDS: FLUoxetine 20 MG CAP PO SCH (08:43)
[2016-09-04] MEDS: FLUTICASONE NASAL 120 SPRAYS/16 GM MDI EACHNARE SCH ×2 (08:43→20:27)
[2016-09-04] MEDS: LISINOPRIL 40 MG TAB PO SCH (08:44)
[2016-09-04] MEDS: buPROPion 75 MG TAB PO SCH ×2 (08:44→20:27)
[2016-09-04] MEDS: APIXABAN 5 MG TAB PO SCH ×2 (08:44→20:27)
[2016-09-04] MEDS: ATENOLOL 50 MG TAB PO SCH (08:44)
[2016-09-04] MEDS: HYDROCHLOROTHIAZIDE 12.5 MG CAP PO SCH (08:45)
--- NOTE | 2016-09-04 13:03 | SOAPPROG ---
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 Improved motor function but dense global aphasia. FIM 39 as of 08/27/16 ; increased to 62 as of 09/03/16. 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 R neglect. Needs physical cueing for ADLs and especially complex tasks such as bathing. Continue physical and occupational therapy to optimize mobility and activities of daily living, and speech and language pathology regarding communication issues. * Global aphasia: decreased comprehension both written and verbal. Perseverative. Continue ENAMEL SPRAYER. * Atrial fibrillation. Continue rate control with atenolol and anticoagulation with apixaban. * Hypertension. D/C'd hydralazine 08/31/16. BP lower than necessary. Reduce amlodipine to 2.5 mg QHS starting 09/04/16. Continue atenolol, HCTZ, lisinopril, . Adequate control. Continue to monitor. * Urinary retention. Resolved with taper of hydralazine; D/C hydralazine today 08/31/16. Unclear if bethanechol was helpful was titrated to 20 mg QID and then tapered and D/C'd. * Urinary incontinence, appears to be resolved with scheduled toileting. Chronic/stable issues: * History of dyslipidemia with rash when she was treated with lovastatin. Will have a dietary consult. * Diabetes mellitus type 2. Hemoglobin A1c 6.3. No indication for medication. Dietary consult. * Perirectal skin excoriation. Appreciate assistance of wound nurse. Much improved; continue current management. * Depression. Both fluoxetine and bupropion appear to have been increased in the hospital. Affect appears improved.. * Obstructive sleep apnea. We will need to discuss with the family regarding whether she was managed with a CPAP mask or other device, and this should be implemented if possible. * Likely peripheral vascular disease with reduced pedal pulses on the right and reported history of right lower extremity venous ulcer. She will be monitored carefully, and her skin will be protected. * Code status. She was DNR at [facility], and this status will be maintained. * Anticoagulation. Apixaban is adequate to prevent DVTs. LOS [id number] per insurance. Family conference 09/05/16. 09/04/16 13:04 Subjective: No complaints. Sitting at lunch table, lunch partially eaten. Objective: Vital Signs Temp Pulse Resp BP Pulse Ox 36.7 C 87 18 104/69 93 09/04/16 06:48 09/04/16 08:44 09/04/16 06:48 09/04/16 08:45 09/04/16 06:48 Laboratory Results 08/24/16 06:00 08/25/16 11:59 09/03/16 09/04/16 09/05/16 05:59 05:59 05:59 Intake Total 572 1070 240 Output Total 650 1500 Balance -78 -430 240 Physical Exam - Physical Exam General Appearance: WD/WN, alert, no apparent distress, obese Respiratory: normal breath sounds, No crackles, No rhonchi, No wheezing Cardiac/Chest: regular rate, rhythm, No edema Skin: normal color, warm/dry Neuro/Psych: alert, normal mood/affect, aphasia (Receptive and expressive. More compliant with requests ("take a deep breath") than previously) ICD10 Worksheet Patient Problems: Problems Problem Status Onset Aphasia due to recent cerebrovascular accident Acute Cerebrovascular accident (CVA) due to occlusion of left middle cerebral artery Acute DM2 (diabetes mellitus, type 2) Acute HTN (hypertension) Acute
[2016-09-04] MEDS: amLODIPine BESYLATE 5 MG TAB PO SCH (20:28)
[2016-09-05] MEDS: APIXABAN 5 MG TAB PO SCH ×2 (08:22→20:29)
[2016-09-05] MEDS: ATENOLOL 50 MG TAB PO SCH (08:23)
[2016-09-05] MEDS: HYDROCHLOROTHIAZIDE 12.5 MG CAP PO SCH (08:25)
[2016-09-05] MEDS: LISINOPRIL 40 MG TAB PO SCH (08:25)
[2016-09-05] MEDS: buPROPion 75 MG TAB PO SCH ×2 (08:25→20:29)
[2016-09-05] MEDS: FLUoxetine 20 MG CAP PO SCH (08:25)
[2016-09-05] MEDS: POLYETHYLENE GLYCOL 3350 17 GM PKT PO PRN (08:26)
[2016-09-05] MEDS: FLUTICASONE NASAL 120 SPRAYS/16 GM MDI EACHNARE SCH (08:26)
--- NOTE | 2016-09-05 14:02 | SOAPPROG ---
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. Improved motor function but dense global aphasia. FIM 39 as of 08/27/16 ; increased to 62 as of 09/03/16. 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 R neglect. Needs physical cueing for ADLs and especially complex tasks such as bathing. Continue physical and occupational therapy to optimize mobility and activities of daily living, and speech and language pathology regarding communication issues. * Global aphasia: decreased comprehension both written and verbal. Perseverative. Improving. Continue AIR GRINDER. * Atrial fibrillation. Continue rate control with atenolol and anticoagulation with apixaban. * Hypertension. D/C'd hydralazine 08/31/16. BP lower than necessary. Reduce amlodipine to 2.5 mg QHS starting 09/04/16. Continue atenolol, HCTZ, lisinopril, . Adequate control. Continue to monitor. * Urinary retention. Resolved with taper of hydralazine; D/C hydralazine today 08/31/16. Unclear if bethanechol was helpful was titrated to 20 mg QID and then tapered and D/C'd. * Urinary incontinence, appears to be resolved with scheduled toileting. Chronic/stable issues: * History of dyslipidemia with rash when she was treated with lovastatin. Will have a dietary consult. * Diabetes mellitus type 2. Hemoglobin A1c 6.3. No indication for medication. Dietary consult. * Perirectal skin excoriation. Appreciate assistance of wound nurse. Much improved; continue current management. * Depression. Both fluoxetine and bupropion appear to have been increased in the hospital. Affect appears improved.. * Obstructive sleep apnea. We will need to discuss with the family regarding whether she was managed with a CPAP mask or other device, and this should be implemented if possible. * Likely peripheral vascular disease with reduced pedal pulses on the right and reported history of right lower extremity venous ulcer. She will be monitored carefully, and her skin will be protected. * Code status. She was DNR at [facility], and this status will be maintained. * Anticoagulation. Apixaban is adequate to prevent DVTs. LOS [id number] per insurance. Family conference 09/06/16. 09/05/16 13:55 Subjective: No complaints. Unreliable yes or no. Not in any distress. Objective: Vital Signs Temp Pulse Resp BP Pulse Ox 36.7 C 78 16 128/78 H 93 09/05/16 07:11 09/05/16 08:23 09/05/16 07:11 09/05/16 08:25 09/05/16 07:11 Laboratory Results 08/24/16 06:00 08/25/16 11:59 09/04/16 09/05/16 09/06/16 05:59 05:59 05:59 Intake Total 1070 1080 150 Output Total 1500 500 200 Balance -430 580 -50 Physical Exam - Physical Exam General Appearance: WD/WN, alert, no apparent distress, obese Respiratory: normal breath sounds, No crackles, No rhonchi, No wheezing Cardiac/Chest: regular rate, rhythm, No edema Skin: normal color, warm/dry Neuro/Psych: alert, normal mood/affect, other (Ambulating no device with PT, wide-based gait, step-through pattern.) ICD10 Worksheet Patient Problems: Problems Problem Status Onset Aphasia due to recent cerebrovascular accident Acute Cerebrovascular accident (CVA) due to occlusion of left middle cerebral artery Acute DM2 (diabetes mellitus, type 2) Acute HTN (hypertension) Acute
[2016-09-05] MEDS: amLODIPine BESYLATE 5 MG TAB PO SCH (20:29)
[2016-09-06] MEDS: APIXABAN 5 MG TAB PO SCH ×2 (09:53→22:26)
[2016-09-06] MEDS: POLYETHYLENE GLYCOL 3350 17 GM PKT PO PRN (09:54)
[2016-09-06] MEDS: FLUoxetine 20 MG CAP PO SCH (09:54)
[2016-09-06] MEDS: LISINOPRIL 40 MG TAB PO SCH (10:10)
[2016-09-06] MEDS: HYDROCHLOROTHIAZIDE 12.5 MG CAP PO SCH (10:11)
[2016-09-06] MEDS: ATENOLOL 50 MG TAB PO SCH (10:14)
[2016-09-06] MEDS: buPROPion 75 MG TAB PO SCH ×2 (10:14→22:26)
[2016-09-06] MEDS: FLUTICASONE NASAL 120 SPRAYS/16 GM MDI EACHNARE SCH ×3 (10:16→22:27)
--- NOTE | 2016-09-06 10:34 | SOAPPROG ---
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 Improved motor function but dense global aphasia. FIM 39 as of 08/27/16 ; increased to 62 as of 09/03/16. 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 R neglect. Needs physical cueing for ADLs and especially complex tasks such as bathing. Continue physical and occupational therapy to optimize mobility and activities of daily living. * Global aphasia: decreased comprehension both written and verbal. Perseverative. Improving. Continue INSIDE SALES DIRECTOR. * Atrial fibrillation. Continue rate control with atenolol and anticoagulation with apixaban. * Hypertension. D/C'd hydralazine 08/31/16. BP lower than necessary. Reduce amlodipine to 2.5 mg QHS starting 09/04/16. Low BP 09/06/16. Hold HCTZ and lisinopril this morning; reduce lisinopril dose to 20 mg QD, D/C amlodipine. Continue to monitor. * Urinary retention. Resolved with taper of hydralazine; D/C hydralazine today 08/31/16. Unclear if bethanechol was helpful was titrated to 20 mg QID and then tapered and D/C'd. * Urinary incontinence, appears to be resolved with scheduled toileting. * Hypoxia. CXR 09/03/16 with cardiomegaly but no pulmonary edema or effusion. Not clinically fluid-overloaded, no S/Sx pneumonia, on apixaban dose adequate to prevent or treat DVT/PE, has been on ACEI and diuretic re CHF. Continue efforts at incentive spirometry. Chronic/stable issues: * History of dyslipidemia with rash when she was treated with lovastatin. Dietary consult. * Diabetes mellitus type 2. Hemoglobin A1c 6.3. No indication for medication. Dietary consult. * Perirectal skin excoriation. Appreciate assistance of wound nurse. Much improved; continue current management. * Depression. Both fluoxetine and bupropion appear to have been increased in the hospital. Affect appears improved.. * Obstructive sleep apnea. We will need to discuss with the family regarding whether she was managed with a CPAP mask or other device, and this should be implemented if possible. * Likely peripheral vascular disease with reduced pedal pulses on the right and reported history of right lower extremity venous ulcer. She will be monitored carefully, and her skin will be protected. * Code status. She was DNR at [facility], and this status will be maintained. * Anticoagulation. Apixaban is adequate to prevent DVTs. Attended family conference, 30 min. Son in attendance and daughter by speakerphone. D/W case mgmt, nursing, PT, OT, INSIDE SALES DIRECTOR. LOS [id number] per insurance. Goal of ASSISTED level of function with discharge goal of 09/27/16. 09/06/16 16:22 Subjective: Low BP noted by nurse this morning. Also had large bowel movement after breakfast. Continent of bladder, no increased frequency, no dysuria observed. Objective: Vital Signs Temp Pulse Resp BP Pulse Ox 36.5 C 99 15 109/73 93 09/06/16 09:54 09/06/16 10:19 09/06/16 09:54 09/06/16 10:19 09/06/16 09:54 Laboratory Results 08/24/16 06:00 08/25/16 11:59 09/05/16 09/06/16 09/07/16 05:59 05:59 05:59 Intake Total 1080 1236 120 Output Total 500 200 300 Balance 580 1036 -180 - Time Spent With Patient Time Spent With Patient: Greater than 35 minutes floor time today, including more than 50% of time in coordination of care and counseling during family meeting. Physical Exam - Physical Exam General Appearance: WD/WN, alert, no apparent distress, obese Respiratory: normal breath sounds, No crackles, No rhonchi, No wheezing Cardiac/Chest: regular rate, rhythm, No edema Skin: normal color, warm/dry Neuro/Psych: alert, normal mood/affect, aphasia ICD10 Worksheet Patient Problems: Problems Problem Status Onset Aphasia due to recent cerebrovascular accident Acute Cerebrovascular accident (CVA) due to occlusion of left middle cerebral artery Acute DM2 (diabetes mellitus, type 2) Acute HTN (hypertension) Acute
[2016-09-07] MEDS: FLUTICASONE NASAL 120 SPRAYS/16 GM MDI EACHNARE SCH ×2 (09:30→20:15)
[2016-09-07] MEDS: APIXABAN 5 MG TAB PO SCH ×2 (09:30→20:15)
[2016-09-07] MEDS: HYDROCHLOROTHIAZIDE 12.5 MG CAP PO SCH (09:30)
[2016-09-07] MEDS: buPROPion 75 MG TAB PO SCH ×2 (09:30→20:15)
[2016-09-07] MEDS: ATENOLOL 50 MG TAB PO SCH (09:30)
[2016-09-07] MEDS: FLUoxetine 20 MG CAP PO SCH (09:30)
[2016-09-07] MEDS: LISINOPRIL 40 MG TAB PO SCH (09:31)
--- NOTE | 2016-09-07 14:35 | WOCRNPDOC ---
WOCRN Advanced Assessment Note - Skin Integrity Problem, Advanced Assess Generalized Perineum Incont Assoc Dermatitis Dressing Type: Open to Air Exudate Amount: None Exudate Characteristic(s): None Dru Wound Tissue: Blanching, Intact Dru Wound Swelling: None Skin Integrity Problem Comment: Wounds on dru-anal area are fully epithelialized and healed. Advised changing over to dimethicone skin protectant BID going forward to protect skin. Wound care does not need to follow this patient. Please reconsult PRN.
--- NOTE | 2016-09-07 15:07 | SOAPPROG ---
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 Improved motor function but dense global aphasia. FIM 39 as of 08/27/16 ; increased to 62 as of 09/03/16. 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 R neglect. Needs physical cueing for ADLs and especially complex tasks such as bathing. Continue physical and occupational therapy to optimize mobility and activities of daily living. * Global aphasia: decreased comprehension both written and verbal. Perseverative. Improving. Continue DIRECTOR OF ENVIRONMENTAL SERVICES. * Atrial fibrillation. Continue rate control with atenolol and anticoagulation with apixaban. * Hypertension. D/C'd hydralazine 08/31/16. BP lower than necessary. Reduce amlodipine to 2.5 mg QHS starting 09/04/16; D/C'd 09/06/16. Reduced lisinopril dose to 20 mg QD, 09/07/16. Continue to monitor. * Urinary retention. Resolved with taper of hydralazine; D/C hydralazine today 08/31/16. Unclear if bethanechol was helpful was titrated to 20 mg QID and then tapered and D/C'd. * Urinary incontinence, appears to be resolved with scheduled toileting. * Hypoxia. CXR 09/03/16 with cardiomegaly but no pulmonary edema or effusion. Not clinically fluid-overloaded, no S/Sx pneumonia, on apixaban dose adequate to prevent or treat DVT/PE, has been on ACEI and diuretic re CHF. Continue efforts at incentive spirometry; seemed to have better understanding when demonstrated use today 09/07/16.. Chronic/stable issues: * History of dyslipidemia with rash when she was treated with lovastatin. Dietary consult. * Diabetes mellitus type 2. Hemoglobin A1c 6.3. No indication for medication. Dietary consult. * Perirectal skin excoriation. Appreciate assistance of wound nurse. Much improved; continue current management. * Depression. Both fluoxetine and bupropion appear to have been increased in the hospital. Affect appears improved.. * Obstructive sleep apnea. We will need to discuss with the family regarding whether she was managed with a CPAP mask or other device, and this should be implemented if possible. * Likely peripheral vascular disease with reduced pedal pulses on the right and reported history of right lower extremity venous ulcer. She will be monitored carefully, and her skin will be protected. * Code status. She was DNR at [facility], and this status will be maintained. * Anticoagulation. Apixaban is adequate to prevent DVTs. LOS [id number] per insurance. Goal of NIRMALA level of function with discharge goal of 09/27/16. 09/07/16 15:04 Subjective: No complaints. Expressive aphasia, appears comfortable. Objective: Vital Signs Temp Pulse Resp BP Pulse Ox 36.9 C 89 18 111/75 94 09/07/16 07:15 09/07/16 09:30 09/07/16 07:15 09/07/16 09:31 09/07/16 07:15 Laboratory Results 08/24/16 06:00 08/25/16 11:59 09/06/16 09/07/16 09/08/16 05:59 05:59 05:59 Intake Total 1236 1540 200 Output Total 200 1400 Balance 1036 140 200 Physical Exam - Physical Exam General Appearance: WD/WN, alert, no apparent distress, obese Respiratory: normal breath sounds, No crackles, No rhonchi, No wheezing Cardiac/Chest: regular rate, rhythm Skin: normal color, warm/dry Neuro/Psych: alert, normal mood/affect, aphasia (Expressive & receptive. Inconsistent Y/N responses.) ICD10 Worksheet Patient Problems: Problems Problem Status Onset Aphasia due to recent cerebrovascular accident Acute Cerebrovascular accident (CVA) due to occlusion of left middle cerebral artery Acute DM2 (diabetes mellitus, type 2) Acute HTN (hypertension) Acute
[2016-09-08] MEDS: FLUoxetine 20 MG CAP PO SCH (08:51)
[2016-09-08] MEDS: buPROPion 75 MG TAB PO SCH ×2 (08:51→20:22)
[2016-09-08] MEDS: APIXABAN 5 MG TAB PO SCH ×2 (08:51→20:22)
[2016-09-08] MEDS: LISINOPRIL 40 MG TAB PO SCH (08:52)
[2016-09-08] MEDS: HYDROCHLOROTHIAZIDE 12.5 MG CAP PO SCH (08:52)
[2016-09-08] MEDS: FLUTICASONE NASAL 120 SPRAYS/16 GM MDI EACHNARE SCH ×2 (08:52→20:23)
[2016-09-08] MEDS: ATENOLOL 50 MG TAB PO SCH (08:53)
--- NOTE | 2016-09-08 11:44 | SOAPPROG ---
MINOR Progress Note Assessment/Plan: Assessment: 75-year-old female with atrial fibrillation status post a stroke and thrown back to me with dense global aphasia. Was previously sub therapeutic on warfarin for atrial fibrillation and is now on apixaban. 09/08/2016 patient participate in well and therapies, still has density aphasia. Will draft a letter endorsing that she is at least temporarily unable to manage her finances, as requested. Otherwise, blood pressure is stable, no new concerns, continue with plan. A total of 40 minutes was spent today on the floor in the care of the patient, the majority of which was spent in the counseling and coordination of care regarding letter drafting as noted above. 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. Improved motor function but dense global aphasia. FIM 39 as of 08/27/16 ; increased to 62 as of 09/03/16. 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 Needs physical cueing for ADLs and especially complex tasks such as bathing. Continue physical and occupational therapy to optimize mobility and activities of daily living. * Global aphasia: decreased comprehension both written and verbal. Perseverative. Improving. Continue EVALUATOR. * Atrial fibrillation. Continue rate control with atenolol and anticoagulation with apixaban. * Hypertension. D/C'd hydralazine 08/31/16. BP lower than necessary. Reduce amlodipine to 2.5 mg QHS starting 09/04/16; D/C'd 09/06/16. Reduced lisinopril dose to 20 mg QD, 09/07/16. Continue to monitor. * Urinary retention. Resolved with taper of hydralazine; D/C hydralazine today 08/31/16. Unclear if bethanechol was helpful was titrated to 20 mg QID and then tapered and D/C'd. * Urinary incontinence, appears to be resolved with scheduled toileting. * Hypoxia. CXR 09/03/16 with cardiomegaly but no pulmonary edema or effusion. Not clinically fluid-overloaded, no S/Sx pneumonia, on apixaban dose adequate to prevent or treat DVT/PE, has been on ACEI and diuretic re CHF. Continue efforts at incentive spirometry; seemed to have better understanding when demonstrated use today 09/07/16.. Chronic/stable issues: * History of dyslipidemia with rash when she was treated with lovastatin. Dietary consult. * Diabetes mellitus type 2. Hemoglobin A1c 6.3. No indication for medication. Dietary consult. * Perirectal skin excoriation. Appreciate assistance of wound nurse. Much improved; continue current management. * Depression. Both fluoxetine and bupropion appear to have been increased in the hospital. Affect appears improved.. * Obstructive sleep apnea. We will need to discuss with the family regarding whether she was managed with a CPAP mask or other device, and this should be implemented if possible. * Likely peripheral vascular disease with reduced pedal pulses on the right and reported history of right lower extremity venous ulcer. She will be monitored carefully, and her skin will be protected. * Code status. She was DNR at [facility], and this status will be maintained. * Anticoagulation. Apixaban is adequate to prevent DVTs. LOS [id number] per insurance. Goal of NIRMALA level of function with discharge goal of 09/27/16. 09/08/16 11:40 Subjective: CC: request for letter No acute events overnight. Patient is pretty spitting will and therapies, denies any lightheadedness, but her accuracy on yes/no answers is fair. Therefore view systems was not entirely accurate, but she did deny any pain, shortness of breath, or new neurological problems. No reports from staff of any concerns. Overall doing well. Received request through the physician communication board that family was requesting a letter documenting that she is unable to manage her finances for the purpose of estate management. Objective: Vital Signs Temp Pulse Resp BP Pulse Ox 36.8 C 96 18 119/72 91 L 09/08/16 05:46 09/08/16 08:53 09/08/16 05:46 09/08/16 08:53 09/08/16 05:46 Laboratory Results 08/24/16 06:00 08/25/16 11:59 09/07/16 09/08/16 09/09/16 05:59 05:59 05:59 Intake Total 1540 940 Output Total 1400 300 Balance 140 640 Physical Exam - Physical Exam General Appearance: alert, no apparent distress EENT: No scleral icterus (R), No scleral icterus (L) Respiratory: lungs clear, normal breath sounds, No respiratory distress, No accessory muscle use Cardiac/Chest: normal peripheral pulses, regular rate, rhythm, No edema Abdomen: non-tender, soft Skin: normal color, warm/dry, No cyanosis Extremities: non-tender, No pedal edema, No swelling Neuro/Psych: alert, normal mood/affect, speech abnormalities ( Appears to have a mixed a fascia, expressive worse than receptive. Only approximately 75% accurate with yes no answers.) ICD10 Worksheet Patient Problems: Problems Problem Status Onset Aphasia due to recent cerebrovascular accident Acute Cerebrovascular accident (CVA) due to occlusion of left middle cerebral artery Acute DM2 (diabetes mellitus, type 2) Acute HTN (hypertension) Acute
[2016-09-09] MEDS: FLUoxetine 20 MG CAP PO SCH (09:17)
[2016-09-09] MEDS: HYDROCHLOROTHIAZIDE 12.5 MG CAP PO SCH (09:18)
[2016-09-09] MEDS: buPROPion 75 MG TAB PO SCH ×2 (09:18→20:01)
[2016-09-09] MEDS: ATENOLOL 50 MG TAB PO SCH (09:18)
[2016-09-09] MEDS: APIXABAN 5 MG TAB PO SCH ×2 (09:18→20:01)
[2016-09-09] MEDS: LISINOPRIL 40 MG TAB PO SCH (09:19)
[2016-09-09] MEDS: FLUTICASONE NASAL 120 SPRAYS/16 GM MDI EACHNARE SCH ×2 (09:21→20:01)
--- NOTE | 2016-09-09 12:21 | SOAPPROG ---
SOAP Progress Note Assessment/Plan: Assessment: 75-year-old female with atrial fibrillation status post a stroke and thrombectomy with dense global aphasia. Was previously sub therapeutic on warfarin for atrial fibrillation and is now on apixaban. 09/09/2016- participating will and therapies, no concern for nursing or staff. Continue plan below. 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 Improved motor function but dense global aphasia. FIM 39 as of 08/27/16 ; increased to 62 as of 09/03/16. 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 R neglect. Needs physical cueing for ADLs and especially complex tasks such as bathing. Continue physical and occupational therapy to optimize mobility and activities of daily living. * Global aphasia: decreased comprehension both written and verbal. Perseverative. Improving. Continue LIQUEFACTION SUPERVISOR. * Atrial fibrillation. Continue rate control with atenolol and anticoagulation with apixaban. * Hypertension. D/C'd hydralazine 08/31/16. BP lower than necessary. Reduced amlodipine to 2.5 mg QHS starting 09/04/16; D/C'd 09/06/16. Reduced lisinopril dose to 20 mg QD, 09/07/16. Continue to monitor. * Urinary retention. Resolved with taper of hydralazine; D/C hydralazine today 08/31/16. Unclear if bethanechol was helpful was titrated to 20 mg QID and then tapered and D/C'd. * Urinary incontinence, appears to be resolved with scheduled toileting. * Hypoxia. CXR 09/03/16 with cardiomegaly but no pulmonary edema or effusion. Not clinically fluid-overloaded, no S/Sx pneumonia, on apixaban dose adequate to prevent or treat DVT/PE, has been on ACEI and diuretic re CHF. Continue efforts at incentive spirometry. Chronic/stable issues: * History of dyslipidemia with rash when she was treated with lovastatin. Dietary consult. * Diabetes mellitus type 2. Hemoglobin A1c 6.3. No indication for medication. Dietary consult. * Perirectal skin excoriation. Appreciate assistance of wound nurse. Much improved; continue current management. * Depression. Both fluoxetine and bupropion appear to have been increased in the hospital. Affect appears improved.. * Obstructive sleep apnea. We will need to discuss with the family regarding whether she was managed with a CPAP mask or other device, and this should be implemented if possible. * Likely peripheral vascular disease with reduced pedal pulses on the right and reported history of right lower extremity venous ulcer. She will be monitored carefully, and her skin will be protected. * Code status. She was DNR at [facility], and this status will be maintained. * Anticoagulation. Apixaban is adequate to prevent DVTs. LOS [id number] per insurance. Goal of [place] level of function with discharge goal of 09/27/16. 09/08/16 11:40 09/09/16 12:14 Subjective: CC: neurological stability No acute events overnight. Patient denies any new symptoms such as numbness, tingling, or weakness. She is inconsistent with yes no answers. No concerns from staff, she is participate in [facility] therapies, making progress. Objective: Vital Signs Temp Pulse Resp BP Pulse Ox 36.6 C 86 18 114/76 94 09/09/16 08:00 09/09/16 09:18 09/09/16 08:00 09/09/16 09:19 09/09/16 08:00 Laboratory Results 08/24/16 06:00 08/25/16 11:59 09/08/16 09/09/16 09/10/16 05:59 05:59 05:59 Intake Total 940 750 Output Total 300 Balance 640 750 Physical Exam - Physical Exam General Appearance: alert, no apparent distress EENT: No scleral icterus (R), No scleral icterus (L) Respiratory: No respiratory distress, No accessory muscle use Cardiac/Chest: normal peripheral pulses, regular rate, rhythm, No edema Skin: normal color, warm/dry, No cyanosis Extremities: No pedal edema, No calf tenderness, No swelling Neuro/Psych: alert, speech abnormalities (dense aphasia, poor verbal command following, does well with demonstration. ) ICD10 Worksheet Patient Problems: Problems Problem Status Onset Aphasia due to recent cerebrovascular accident Acute Cerebrovascular accident (CVA) due to occlusion of left middle cerebral artery Acute DM2 (diabetes mellitus, type 2) Acute HTN (hypertension) Acute
[2016-09-10] MEDS: APIXABAN 5 MG TAB PO SCH ×2 (08:16→19:24)
[2016-09-10] MEDS: ATENOLOL 50 MG TAB PO SCH (08:16)
[2016-09-10] MEDS: FLUoxetine 20 MG CAP PO SCH (08:17)
[2016-09-10] MEDS: LISINOPRIL 40 MG TAB PO SCH (08:17)
[2016-09-10] MEDS: buPROPion 75 MG TAB PO SCH ×2 (08:17→19:24)
[2016-09-10] MEDS: HYDROCHLOROTHIAZIDE 12.5 MG CAP PO SCH (08:18)
[2016-09-10] MEDS: FLUTICASONE NASAL 120 SPRAYS/16 GM MDI EACHNARE SCH ×2 (08:22→19:26)
--- NOTE | 2016-09-10 12:19 | SOAPPROG ---
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 Improved motor function but dense global aphasia. FIM 39 as of 08/27/16 ; increased to 62 as of 09/03/16, and to 76 as of 09/10/16. Ambulates 400' and does 6 stairs SBA, no device. R neglect. Min A UB dressing to fasten bra; o/ w set-up/S for dressing. CGA shower transfer SBA toileting. Continue physical and occupational therapy to optimize mobility and activities of daily living. * Global aphasia: decreased comprehension both written and verbal. Perseverative. Improving. Difficult to assess cognition with language impairment. 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 * Atrial fibrillation. Continue rate control with atenolol and anticoagulation with apixaban. * Hypertension. Adequate control on atenolol 100 mg QD and lisinopril 20 mg QD. Hydralazine and amlodipine have been discontinued. * Urinary retention. Resolved with taper of hydralazine; D/C hydralazine today 08/31/16. Unclear if bethanechol was helpful was titrated to 20 mg QID and then tapered and D/C'd. * Urinary incontinence, appears to be resolved with scheduled toileting. * Hypoxia. CXR 09/03/16 with cardiomegaly but no pulmonary edema or effusion. Not clinically fluid-overloaded, no S/Sx pneumonia, on apixaban dose adequate to prevent or treat DVT/PE, has been on ACEI and diuretic re CHF. Continue efforts at incentive spirometry; seemed to have better understanding when demonstrated use today 09/07/16.. Chronic/stable issues: * History of dyslipidemia with rash when she was treated with lovastatin. Dietary consult. * Diabetes mellitus type 2. Hemoglobin A1c 6.3. No indication for medication. Dietary consult. * Perirectal skin excoriation. Appreciate assistance of wound nurse. Resolved. * Depression. Both fluoxetine and bupropion appear to have been increased in the hospital. Affect appears improved.. * Obstructive sleep apnea. We will need to discuss with the family regarding whether she was managed with a CPAP mask or other device, and this should be implemented if possible. * Likely peripheral vascular disease with reduced pedal pulses on the right and reported history of right lower extremity venous ulcer. She will be monitored carefully, and her skin will be protected. * Code status. She was DNR at [facility], and this status will be maintained. * Anticoagulation. Apixaban is adequate to prevent DVTs. Attended staffing, 15 min. D/W case mgmt, nursing, PT, OT , WINDOW SYSTEMS ADMINISTRATOR. Goal of [place] level of function with discharge goal of 09/27/16. 09/10/16 12:19 Subjective: No complaints. In good spirits. Objective: Vital Signs Temp Pulse Resp BP Pulse Ox 36.8 C 78 16 139/89 H 93 09/10/16 07:59 09/10/16 08:16 09/10/16 07:59 09/10/16 08:18 09/10/16 07:59 Laboratory Results 08/24/16 06:00 08/25/16 11:59 09/09/16 09/10/16 09/11/16 05:59 05:59 05:59 Intake Total 750 600 250 Output Total 950 Balance 750 -350 250 - Time Spent With Patient Time Spent With Patient: Greater than 35 min floor time today, including more than 50% of time in coordination of care during staffing, and counseling patient. Physical Exam - Physical Exam General Appearance: WD/WN, alert, no apparent distress, obese Respiratory: normal breath sounds, No crackles, No rhonchi, No wheezing Cardiac/Chest: regular rate, rhythm, No edema Skin: normal color, warm/dry Neuro/Psych: alert, normal mood/affect, aphasia (Able to say "I hope" when discussing improvement in communication.) ICD10 Worksheet Patient Problems: Problems Problem Status Onset Aphasia due to recent cerebrovascular accident Acute Cerebrovascular accident (CVA) due to occlusion of left middle cerebral artery Acute DM2 (diabetes mellitus, type 2) Acute HTN (hypertension) Acute
[2016-09-11] MEDS: HYDROCHLOROTHIAZIDE 12.5 MG CAP PO SCH (08:24)
[2016-09-11] MEDS: FLUoxetine 20 MG CAP PO SCH (08:24)
[2016-09-11] MEDS: APIXABAN 5 MG TAB PO SCH ×2 (08:25→19:28)
[2016-09-11] MEDS: ATENOLOL 50 MG TAB PO SCH (08:25)
[2016-09-11] MEDS: LISINOPRIL 40 MG TAB PO SCH (08:25)
[2016-09-11] MEDS: buPROPion 75 MG TAB PO SCH ×2 (08:25→19:28)
[2016-09-11] MEDS: FLUTICASONE NASAL 120 SPRAYS/16 GM MDI EACHNARE SCH ×2 (08:27→19:28)
--- NOTE | 2016-09-11 12:03 | SOAPPROG ---
SOAP Progress Note Assessment/Plan: Assessment: 75-year-old female with atrial fibrillation status post a stroke and thrombectomy with dense global aphasia. Was previously sub therapeutic on warfarin for atrial fibrillation and is now on apixaban. 09/11/2016- Doing well today, no particular concerns. Making slow improvements in her communication. Participating well in therapies. Remainder of plan below unchanged. 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 Improved motor function but dense global aphasia. FIM 39 as of 08/27/16 ; increased to 62 as of 09/03/16, and to 76 as of 09/10/16. Ambulates 400' and does 6 stairs SBA, no device. R neglect. Min A UB dressing to fasten bra; o/ w set-up/S for dressing. CGA shower transfer SBA toileting. Continue physical and occupational therapy to optimize mobility and activities of daily living. * Global aphasia: decreased comprehension both written and verbal. Perseverative. Improving. Difficult to assess cognition with language impairment. 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 * Atrial fibrillation. Continue rate control with atenolol and anticoagulation with apixaban. * Hypertension. Adequate control on atenolol 100 mg QD and lisinopril 20 mg QD. Hydralazine and amlodipine have been discontinued. * Urinary retention. Resolved with taper of hydralazine; D/C hydralazine today 08/31/16. Unclear if bethanechol was helpful was titrated to 20 mg QID and then tapered and D/C'd. * Urinary incontinence, appears to be resolved with scheduled toileting. * Hypoxia. CXR 09/03/16 with cardiomegaly but no pulmonary edema or effusion. Not clinically fluid-overloaded, no S/Sx pneumonia, on apixaban dose adequate to prevent or treat DVT/PE, has been on ACEI and diuretic re CHF. Continue efforts at incentive spirometry; seemed to have better understanding when demonstrated use today 09/07/16.. Chronic/stable issues: * History of dyslipidemia with rash when she was treated with lovastatin. Dietary consult. * Diabetes mellitus type 2. Hemoglobin A1c 6.3. No indication for medication. Dietary consult. * Perirectal skin excoriation. Appreciate assistance of wound nurse. Resolved. * Depression. Both fluoxetine and bupropion appear to have been increased in the hospital. Affect appears improved.. * Obstructive sleep apnea. We will need to discuss with the family regarding whether she was managed with a CPAP mask or other device, and this should be implemented if possible. * Likely peripheral vascular disease with reduced pedal pulses on the right and reported history of right lower extremity venous ulcer. She will be monitored carefully, and her skin will be protected. * Code status. She was DNR at [facility], and this status will be maintained. * Anticoagulation. Apixaban is adequate to prevent DVTs. Goal of [facility] level of function with discharge goal of 09/27/16. 09/08/16 11:40 09/09/16 12:14 09/11/16 11:59 Subjective: CC: neurological stability No acute events overnight. Patient endorses that therapies are going well, denies pain, denies any new numbness, tingling, or weakness. Communication appears to be close to 100% accurate for yes/no questions. However, somewhat still limited inability to do review systems. Objective: Vital Signs Temp Pulse Resp BP Pulse Ox 36.6 C 75 18 135/79 H 90 L 09/11/16 06:43 09/11/16 10:00 09/11/16 06:43 09/11/16 08:25 09/11/16 10:00 Laboratory Results 08/24/16 06:00 08/25/16 11:59 09/10/16 09/11/16 09/12/16 05:59 05:59 05:59 Intake Total 600 950 180 Output Total 950 350 350 Balance -350 600 -170 Physical Exam - Physical Exam General Appearance: WD/WN, alert, no apparent distress EENT: No scleral icterus (R), No scleral icterus (L) Respiratory: lungs clear, normal breath sounds, No respiratory distress, No accessory muscle use, No rales, No rhonchi, No wheezing Cardiac/Chest: normal peripheral pulses, regular rate, rhythm, No edema Skin: normal color, warm/dry, No cyanosis Extremities: non-tender, No pedal edema, No swelling Neuro/Psych: alert, normal mood/affect, speech abnormalities ( Close to 100% accurate in egocentric yes no questions. Still very dense expressive aphasia.) ICD10 Worksheet Patient Problems: Problems Problem Status Onset Aphasia due to recent cerebrovascular accident Acute Cerebrovascular accident (CVA) due to occlusion of left middle cerebral artery Acute DM2 (diabetes mellitus, type 2) Acute HTN (hypertension) Acute
[2016-09-12] MEDS: APIXABAN 5 MG TAB PO SCH ×2 (08:41→20:48)
[2016-09-12] MEDS: ATENOLOL 50 MG TAB PO SCH (08:41)
[2016-09-12] MEDS: HYDROCHLOROTHIAZIDE 12.5 MG CAP PO SCH (08:42)
[2016-09-12] MEDS: buPROPion 75 MG TAB PO SCH ×2 (08:42→20:48)
[2016-09-12] MEDS: LISINOPRIL 40 MG TAB PO SCH (08:42)
[2016-09-12] MEDS: FLUoxetine 20 MG CAP PO SCH (08:42)
[2016-09-12] MEDS: FLUTICASONE NASAL 120 SPRAYS/16 GM MDI EACHNARE SCH ×2 (08:49→20:48)
--- NOTE | 2016-09-12 16:32 | SOAPPROG ---
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 Improved motor function but dense global aphasia. FIM 39 as of 08/27/16 ; increased to 62 as of 09/03/16, and to 76 as of 09/10/16. Ambulates 400' and does 6 stairs SBA, no device. R neglect. Min A UB dressing to fasten bra; o/ w set-up/S for dressing. CGA shower transfer SBA toileting. Continue physical and occupational therapy to optimize mobility and activities of daily living. * Global aphasia: decreased comprehension both written and verbal. Perseverative. Improving. Difficult to assess cognition with language impairment. 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 * Atrial fibrillation. Continue rate control with atenolol and anticoagulation with apixaban. * Hypertension. Adequate control on atenolol 100 mg QD and lisinopril 20 mg QD. Hydralazine and amlodipine have been discontinued. * Urinary retention. Resolved with taper of hydralazine; D/C hydralazine today 08/31/16. Unclear if bethanechol was helpful was titrated to 20 mg QID and then tapered and D/C'd. * Urinary incontinence, appears to be resolved with scheduled toileting. * Hypoxia. CXR 09/03/16 with cardiomegaly but no pulmonary edema or effusion. Not clinically fluid-overloaded, no S/Sx pneumonia, on apixaban dose adequate to prevent or treat DVT/PE, has been on ACEI and diuretic re CHF. Continue efforts at incentive spirometry. Chronic/stable issues: * History of dyslipidemia with rash when she was treated with lovastatin. Dietary consult. * Diabetes mellitus type 2. Hemoglobin A1c 6.3. No indication for medication. Dietary consult. * Perirectal skin excoriation. Appreciate assistance of wound nurse. Resolved. * Depression. Both fluoxetine and bupropion appear to have been increased in the hospital. Affect appears improved.. * Obstructive sleep apnea. We will need to discuss with the family regarding whether she was managed with a CPAP mask or other device, and this should be implemented if possible. * Likely peripheral vascular disease with reduced pedal pulses on the right and reported history of right lower extremity venous ulcer. She will be monitored carefully, and her skin will be protected. * Code status. She was DNR at [facility], and this status will be maintained. * Anticoagulation. Apixaban is adequate to prevent DVTs. Goal of [facility] level of function with discharge goal of 09/27/16. 09/12/16 16:30 Subjective: No complaints. Denies pain, cough, dyspnea. Objective: Vital Signs Temp Pulse Resp BP Pulse Ox 36.8 C 63 18 138/87 H 93 09/12/16 07:18 09/12/16 08:41 09/12/16 07:18 09/12/16 08:42 09/11/16 18:28 Laboratory Results 08/24/16 06:00 08/25/16 11:59 09/11/16 09/12/16 09/13/16 05:59 05:59 05:59 Intake Total 950 630 354 Output Total 350 1100 Balance 600 -470 354 Physical Exam - Physical Exam General Appearance: WD/WN, alert, no apparent distress, obese Respiratory: normal breath sounds, No crackles, No rhonchi, No wheezing Cardiac/Chest: regular rate, rhythm Skin: normal color, warm/dry Neuro/Psych: alert, normal mood/affect, aphasia (Appears to be more consistent with Y/N. Recovered social greetings.) ICD10 Worksheet Patient Problems: Problems Problem Status Onset Aphasia due to recent cerebrovascular accident Acute Cerebrovascular accident (CVA) due to occlusion of left middle cerebral artery Acute DM2 (diabetes mellitus, type 2) Acute HTN (hypertension) Acute
[2016-09-12] MEDS: SENNOSIDES 1 TAB PO SCH (20:48)
[2016-09-13] MEDS: buPROPion 75 MG TAB PO SCH ×2 (09:27→21:09)
[2016-09-13] MEDS: APIXABAN 5 MG TAB PO SCH ×2 (09:27→21:09)
[2016-09-13] MEDS: ATENOLOL 50 MG TAB PO SCH (09:28)
[2016-09-13] MEDS: HYDROCHLOROTHIAZIDE 12.5 MG CAP PO SCH (09:28)
[2016-09-13] MEDS: FLUoxetine 20 MG CAP PO SCH (09:28)
[2016-09-13] MEDS: LISINOPRIL 20 MG TAB PO SCH (09:29)
[2016-09-13] MEDS: FLUTICASONE NASAL 120 SPRAYS/16 GM MDI EACHNARE SCH ×2 (09:29→21:10)
--- NOTE | 2016-09-13 09:39 | SOAPPROG ---
SOAP Progress Note Assessment/Plan: Assessment: 75-year-old female with atrial fibrillation status post a stroke and thrombectomy with dense global aphasia. Was previously sub therapeutic on warfarin for atrial fibrillation and is now on apixaban. 09/13/2016 patient is doing well, participating in therapies, neurologically stable. No new concerns today, continue plan below. Goal will be to wean off of oxygen entirely if tolerating. 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 Improved motor function but dense global aphasia. FIM 39 as of 08/27/16 ; increased to 62 as of 09/03/16, and to 76 as of 09/10/16. Ambulates 400' and does 6 stairs SBA, no device. R neglect. Min A UB dressing to fasten bra; o/ w set-up/S for dressing. CGA shower transfer SBA toileting. Continue physical and occupational therapy to optimize mobility and activities of daily living. * Global aphasia: decreased comprehension both written and verbal. Perseverative. Improving. Difficult to assess cognition with language impairment. 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 * Atrial fibrillation. Continue rate control with atenolol and anticoagulation with apixaban. * Hypertension. Adequate control on atenolol 100 mg QD and lisinopril 20 mg QD. Hydralazine and amlodipine have been discontinued. * Urinary retention. Resolved with taper of hydralazine; D/C hydralazine today 08/31/16. Unclear if bethanechol was helpful was titrated to 20 mg QID and then tapered and D/C'd. * Urinary incontinence, appears to be resolved with scheduled toileting. * Hypoxia. CXR 09/03/16 with cardiomegaly but no pulmonary edema or effusion. Not clinically fluid-overloaded, no S/Sx pneumonia, on apixaban dose adequate to prevent or treat DVT/PE, has been on ACEI and diuretic re CHF. Continue efforts at incentive spirometry. Chronic/stable issues: * History of dyslipidemia with rash when she was treated with lovastatin. Dietary consult. * Diabetes mellitus type 2. Hemoglobin A1c 6.3. No indication for medication. Dietary consult. * Perirectal skin excoriation. Appreciate assistance of wound nurse. Resolved. * Depression. Both fluoxetine and bupropion appear to have been increased in the hospital. Affect appears improved.. * Obstructive sleep apnea. We will need to discuss with the family regarding whether she was managed with a CPAP mask or other device, and this should be implemented if possible. * Likely peripheral vascular disease with reduced pedal pulses on the right and reported history of right lower extremity venous ulcer. She will be monitored carefully, and her skin will be protected. * Code status. She was DNR at [facility], and this status will be maintained. * Anticoagulation. Apixaban is adequate to prevent DVTs. Goal of [place] level of function with discharge goal of 09/27/16. 09/08/16 11:40 09/09/16 12:14 09/11/16 11:59 09/13/16 09:36 Subjective: CC: neurological improvements No acute events overnight. Patient continues to participate well in therapies, remains a proximally 75 to 100% accurate on yes no communication. Denies any pain, shortness of breath, chest pain, new numbness, tingling, or weakness. Denies any new concerns. No concerns from staff. Objective: Vital Signs Temp Pulse Resp BP Pulse Ox 36.6 C 90 16 112/78 96 09/13/16 09:06 09/13/16 09:28 09/12/16 19:57 09/13/16 09:29 09/12/16 19:57 Laboratory Results 08/24/16 06:00 08/25/16 11:59 09/12/16 09/13/16 09/14/16 05:59 05:59 05:59 Intake Total 630 840 Output Total 1100 725 Balance -470 115 Physical Exam - Physical Exam General Appearance: WD/WN, alert, no apparent distress Respiratory: lungs clear, normal breath sounds, No respiratory distress, No accessory muscle use Cardiac/Chest: normal peripheral pulses, regular rate, rhythm, No edema Abdomen: non-tender, soft Skin: normal color, warm/dry, No cyanosis Extremities: No pedal edema, No swelling Neuro/Psych: alert, normal mood/affect, speech abnormalities (75-100% accurate with egocentric yes no questions) ICD10 Worksheet Patient Problems: Problems Problem Status Onset Aphasia due to recent cerebrovascular accident Acute Cerebrovascular accident (CVA) due to occlusion of left middle cerebral artery Acute DM2 (diabetes mellitus, type 2) Acute HTN (hypertension) Acute
[2016-09-13] MEDS: SENNOSIDES 1 TAB PO SCH (21:09)
[2016-09-14] MEDS: LISINOPRIL 20 MG TAB PO SCH (09:31)
[2016-09-14] MEDS: HYDROCHLOROTHIAZIDE 12.5 MG CAP PO SCH (09:32)
[2016-09-14] MEDS: buPROPion 75 MG TAB PO SCH ×2 (09:32→20:40)
[2016-09-14] MEDS: APIXABAN 5 MG TAB PO SCH ×2 (09:32→20:40)
[2016-09-14] MEDS: ATENOLOL 50 MG TAB PO SCH (09:32)
[2016-09-14] MEDS: FLUoxetine 20 MG CAP PO SCH (09:32)
[2016-09-14] MEDS: FLUTICASONE NASAL 120 SPRAYS/16 GM MDI EACHNARE SCH ×2 (09:33→20:41)
--- NOTE | 2016-09-14 16:19 | SOAPPROG ---
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 Improved motor function but dense global aphasia. FIM 39 as of 08/27/16 ; increased to 62 as of 09/03/16, to 76 as of 09/10/16, to 82 as of 09/14/16. Ambulates 400' limited by fatigue, and does 6 stairs SBA, no device. R neglect. I in room since . Set-up/S for dressing. Gets disorganized in the shower. Continue physical and occupational therapy to optimize mobility and activities of daily living. * Global aphasia: comprehension much improved. Perseverative. Improving. Continue INHALATION THERAPY TEACHER. * Atrial fibrillation. Continue rate control with atenolol and anticoagulation with apixaban. * Hypertension. Adequate control on atenolol 100 mg QD and lisinopril 20 mg QD. Hydralazine and amlodipine have been discontinued. * Urinary retention. Resolved with taper of hydralazine; D/C hydralazine today 08/31/16. Unclear if bethanechol was helpful was titrated to 20 mg QID and then tapered and D/C'd. * Urinary incontinence, appears to be resolved with scheduled toileting. * Hypoxia. CXR 09/03/16 with cardiomegaly but no pulmonary edema or effusion. Not clinically fluid-overloaded, no S/Sx pneumonia, on apixaban dose adequate to prevent or treat DVT/PE, has been on ACEI and diuretic re CHF. Continue efforts at incentive spirometry. Chronic/stable issues: * History of dyslipidemia with rash when she was treated with lovastatin. Dietary consult. * Diabetes mellitus type 2. Hemoglobin A1c 6.3. No indication for medication. Dietary consult. * Perirectal skin excoriation. Appreciate assistance of wound nurse. Resolved. * Depression. Both fluoxetine and bupropion appear to have been increased in the hospital. Affect appears improved.. * Obstructive sleep apnea. We will need to discuss with the family regarding whether she was managed with a CPAP mask or other device, and this should be implemented if possible. * Likely peripheral vascular disease with reduced pedal pulses on the right and reported history of right lower extremity venous ulcer. She will be monitored carefully, and her skin will be protected. * Code status. She was DNR at [facility], and this status will be maintained. * Anticoagulation. Apixaban is adequate to prevent DVTs. Attended staffing, 15 min. D/W case mgmt, nursing, PT, OT, INHALATION THERAPY TEACHER. Planning discharge to [place], goal of LONGTERM level of function with discharge goal of . 09/14/16 16:13 Subjective: No complaints. Denies cough or dyspnea. No calf pain. No f/c. Objective: Vital Signs Temp Pulse Resp BP Pulse Ox 36.9 C 78 14 148/99 H 92 09/14/16 07:40 09/14/16 07:40 09/14/16 07:40 09/14/16 07:40 09/14/16 07:40 Laboratory Results 08/24/16 06:00 08/25/16 11:59 09/13/16 09/14/16 09/15/16 05:59 05:59 05:59 Intake Total 840 810 540 Output Total 725 600 Balance 115 210 540 - Time Spent With Patient Time Spent With Patient: Greater than 35 minutes cynthia time today, including more than 50% of time in coordination of care during staffing meeting, and counseling patient. Physical Exam - Physical Exam General Appearance: WD/WN, alert, no apparent distress Respiratory: normal breath sounds, No crackles, No rhonchi, No wheezing Cardiac/Chest: regular rate, rhythm, No edema Skin: normal color, warm/dry Extremities: No calf tenderness Neuro/Psych: no motor/sensory deficits, alert, normal mood/affect, aphasia ( Comprehension seems mostly intact. has few words.) ICD10 Worksheet Patient Problems: Problems Problem Status Onset Aphasia due to recent cerebrovascular accident Acute Cerebrovascular accident (CVA) due to occlusion of left middle cerebral artery Acute DM2 (diabetes mellitus, type 2) Acute HTN (hypertension) Acute
[2016-09-14] MEDS: SENNOSIDES 1 TAB PO SCH (20:40)
--- NOTE | 2016-09-15 07:33 | SOAPPROG ---
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 Improved motor function but dense global aphasia. FIM 39 as of 08/27/16 ; increased to 62 as of 09/03/16, to 76 as of 09/10/16, to 82 as of 09/14/16. Ambulates 400' limited by fatigue, and does 6 stairs SBA, no device. R neglect. I in room since . Set-up/S for dressing. Gets disorganized in the shower. Continue physical and occupational therapy to optimize mobility and activities of daily living. * Global aphasia: comprehension much improved. Perseverative. Improving. 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 * Atrial fibrillation. Continue rate control with atenolol and anticoagulation with apixaban. * Hypertension. Adequate control on atenolol 100 mg QD and lisinopril 20 mg QD. Hydralazine and amlodipine have been discontinued. * Urinary retention. Resolved with taper of hydralazine; D/C hydralazine today 08/31/16. Unclear if bethanechol was helpful was titrated to 20 mg QID and then tapered and D/C'd. * Urinary incontinence, appears to be resolved with scheduled toileting. * Hypoxia. CXR 09/03/16 with cardiomegaly but no pulmonary edema or effusion. Not clinically fluid-overloaded, no S/Sx pneumonia, on apixaban dose adequate to prevent or treat DVT/PE, has been on ACEI and diuretic re CHF. Continue efforts at incentive spirometry. Chronic/stable issues: * History of dyslipidemia with rash when she was treated with lovastatin. Dietary consult. * Diabetes mellitus type 2. Hemoglobin A1c 6.3. No indication for medication. Dietary consult. * Perirectal skin excoriation. Appreciate assistance of wound nurse. Resolved. * Depression. Both fluoxetine and bupropion appear to have been increased in the hospital. Affect appears improved.. * Obstructive sleep apnea. We will need to discuss with the family regarding whether she was managed with a CPAP mask or other device, and this should be implemented if possible. * Likely peripheral vascular disease with reduced pedal pulses on the right and reported history of right lower extremity venous ulcer. She will be monitored carefully, and her skin will be protected. * Code status. She was DNR at [facility], and this status will be maintained. * Anticoagulation. Apixaban is adequate to prevent DVTs. Planning discharge to [place], goal of [place] level of function with discharge goal of 09/27/16. Subjective: No events. No complaints this a.m. no distress. Objective: Vital Signs Temp Pulse Resp BP Pulse Ox 36.8 C 82 16 145/89 H 93 09/15/16 06:16 09/15/16 06:16 09/15/16 06:16 09/15/16 06:16 09/15/16 06:16 Laboratory Results 08/24/16 06:00 08/25/16 11:59 09/14/16 09/15/16 09/16/16 05:59 05:59 05:59 Intake Total 810 940 400 Output Total 600 600 300 Balance 210 340 100 - Pending Discharge Pending Discharge Within 24 Hours: No Pending Discharge Within 48 Hours: No Physical Exam - Physical Exam General Appearance: alert, no apparent distress Respiratory: lungs clear, normal breath sounds (on NC) Cardiac/Chest: regular rate, rhythm Abdomen: normal bowel sounds Skin: warm/dry Neuro/Psych: alert, normal mood/affect, motor weakness, speech abnormalities ICD10 Worksheet Patient Problems: Problems Problem Status Onset Aphasia due to recent cerebrovascular accident Acute Cerebrovascular accident (CVA) due to occlusion of left middle cerebral artery Acute DM2 (diabetes mellitus, type 2) Acute HTN (hypertension) Acute
[2016-09-15] MEDS: buPROPion 75 MG TAB PO SCH ×2 (08:39→20:08)
[2016-09-15] MEDS: LISINOPRIL 20 MG TAB PO SCH (08:39)
[2016-09-15] MEDS: HYDROCHLOROTHIAZIDE 12.5 MG CAP PO SCH (08:39)
[2016-09-15] MEDS: APIXABAN 5 MG TAB PO SCH ×2 (08:39→20:08)
[2016-09-15] MEDS: ATENOLOL 50 MG TAB PO SCH (08:39)
[2016-09-15] MEDS: FLUoxetine 20 MG CAP PO SCH (08:39)
[2016-09-15] MEDS: FLUTICASONE NASAL 120 SPRAYS/16 GM MDI EACHNARE SCH ×2 (10:05→20:07)
[2016-09-15] MEDS: SENNOSIDES 1 TAB PO SCH (20:07)
--- NOTE | 2016-09-16 07:53 | SOAPPROG ---
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 Improved motor function but dense global aphasia. FIM 39 as of 08/27/16 ; increased to 62 as of 09/03/16, to 76 as of 09/10/16, to 82 as of 09/14/16. Ambulates 400' limited by fatigue, and does 6 stairs SBA, no device. R neglect. I in room since . Set-up/S for dressing. Gets disorganized in the shower. Continue physical and occupational therapy to optimize mobility and activities of daily living. * Global aphasia: comprehension much improved. Perseverative. Improving. 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 * Atrial fibrillation. Continue rate control with atenolol and anticoagulation with apixaban. * Hypertension. Adequate control on atenolol 100 mg QD and lisinopril 20 mg QD. Hydralazine and amlodipine have been discontinued. * Urinary retention. Resolved with taper of hydralazine; D/C hydralazine today 08/31/16. Unclear if bethanechol was helpful was titrated to 20 mg QID and then tapered and D/C'd. * Urinary incontinence, appears to be resolved with scheduled toileting. * Hypoxia. CXR 09/03/16 with cardiomegaly but no pulmonary edema or effusion. Not clinically fluid-overloaded, no S/Sx pneumonia, on apixaban dose adequate to prevent or treat DVT/PE, has been on ACEI and diuretic re CHF. Continue efforts at incentive spirometry. Chronic/stable issues: * History of dyslipidemia with rash when she was treated with lovastatin. Dietary consult. * Diabetes mellitus type 2. Hemoglobin A1c 6.3. No indication for medication. Dietary consult. * Perirectal skin excoriation. Appreciate assistance of wound nurse. Resolved. * Depression. Both fluoxetine and bupropion appear to have been increased in the hospital. Affect appears improved.. * Obstructive sleep apnea. We will need to discuss with the family regarding whether she was managed with a CPAP mask or other device, and this should be implemented if possible. * Likely peripheral vascular disease with reduced pedal pulses on the right and reported history of right lower extremity venous ulcer. She will be monitored carefully, and her skin will be protected. * Code status. She was DNR at [facility], and this status will be maintained. * Anticoagulation. Apixaban is adequate to prevent DVTs. Planning discharge to [place], goal of [place] level of function with discharge goal of 09/27/16. Subjective: No events. No complaints this a.m. Denies pain, no distress. Objective: Vital Signs Temp Pulse Resp BP Pulse Ox 36.6 C 86 16 137/80 H 96 09/16/16 06:30 09/16/16 06:30 09/16/16 06:30 09/16/16 06:30 09/16/16 06:30 Laboratory Results 08/24/16 06:00 08/25/16 11:59 09/15/16 09/16/16 09/17/16 05:59 05:59 05:59 Intake Total 940 1104 Output Total 600 600 Balance 340 504 - Pending Discharge Pending Discharge Within 24 Hours: No Pending Discharge Within 48 Hours: No Physical Exam - Physical Exam General Appearance: alert, no apparent distress Neck: supple Respiratory: lungs clear, normal breath sounds Cardiac/Chest: regular rate, rhythm Abdomen: normal bowel sounds, non-tender Skin: warm/dry Neuro/Psych: alert, normal mood/affect, motor weakness (right thien), speech abnormalities (global aphasia) ICD10 Worksheet Patient Problems: Problems Problem Status Onset Aphasia due to recent cerebrovascular accident Acute Cerebrovascular accident (CVA) due to occlusion of left middle cerebral artery Acute DM2 (diabetes mellitus, type 2) Acute HTN (hypertension) Acute
[2016-09-16] MEDS: buPROPion 75 MG TAB PO SCH ×2 (08:28→20:14)
[2016-09-16] MEDS: FLUoxetine 20 MG CAP PO SCH (08:28)
[2016-09-16] MEDS: APIXABAN 5 MG TAB PO SCH ×2 (08:28→20:14)
[2016-09-16] MEDS: LISINOPRIL 20 MG TAB PO SCH (08:29)
[2016-09-16] MEDS: HYDROCHLOROTHIAZIDE 12.5 MG CAP PO SCH (08:29)
[2016-09-16] MEDS: ATENOLOL 50 MG TAB PO SCH (08:29)
[2016-09-16] MEDS: FLUTICASONE NASAL 120 SPRAYS/16 GM MDI EACHNARE SCH ×2 (09:00→20:15)
[2016-09-16] MEDS: SENNOSIDES 1 TAB PO SCH (20:14)
[2016-09-17] MEDS: FLUoxetine 20 MG CAP PO SCH (08:30)
[2016-09-17] MEDS: HYDROCHLOROTHIAZIDE 12.5 MG CAP PO SCH (08:31)
[2016-09-17] MEDS: buPROPion 75 MG TAB PO SCH ×2 (08:33→20:16)
[2016-09-17] MEDS: ATENOLOL 50 MG TAB PO SCH (08:33)
[2016-09-17] MEDS: LISINOPRIL 20 MG TAB PO SCH (08:34)
[2016-09-17] MEDS: APIXABAN 5 MG TAB PO SCH ×2 (08:35→20:16)
[2016-09-17] MEDS: FLUTICASONE NASAL 120 SPRAYS/16 GM MDI EACHNARE SCH ×2 (08:36→20:16)
--- NOTE | 2016-09-17 15:56 | SOAPPROG ---
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 Improved motor function but dense global aphasia. FIM 39 as of 08/27/16 ; increased to 62 as of 09/03/16, to 76 as of 09/10/16, to 82 as of 09/14/16. Ambulates 400' limited by fatigue, and does 6 stairs SBA, no device. R neglect. I in room since . Set-up/S for dressing. Gets disorganized in the shower. Continue physical and occupational therapy to optimize mobility and activities of daily living. * Global aphasia: comprehension much improved. Perseverative. Improving. Continue MANAGER DEMAND. * Atrial fibrillation. Continue rate control with atenolol and anticoagulation with apixaban. * Hypertension. Adequate control on atenolol 100 mg QD and lisinopril 20 mg QD. Hydralazine and amlodipine have been discontinued. * Urinary retention. Resolved with taper of hydralazine; D/C hydralazine today 08/31/16. Unclear if bethanechol was helpful was titrated to 20 mg QID and then tapered and D/C'd. * Urinary incontinence, appears to be resolved with scheduled toileting. * Hypoxia. CXR 09/03/16 with cardiomegaly but no pulmonary edema or effusion. Not clinically fluid-overloaded, no S/Sx pneumonia, on apixaban dose adequate to prevent or treat DVT/PE, has been on ACEI and diuretic re CHF. Continue efforts at incentive spirometry. Chronic/stable issues: * History of dyslipidemia with rash when she was treated with lovastatin. Dietary consult. * Diabetes mellitus type 2. Hemoglobin A1c 6.3. No indication for medication. Dietary consult. * Perirectal skin excoriation. Appreciate assistance of wound nurse. Resolved. * Depression. Both fluoxetine and bupropion appear to have been increased in the hospital. Affect appears improved.. * Obstructive sleep apnea. We will need to discuss with the family regarding whether she was managed with a CPAP mask or other device, and this should be implemented if possible. * Likely peripheral vascular disease with reduced pedal pulses on the right and reported history of right lower extremity venous ulcer. She will be monitored carefully, and her skin will be protected. * Code status. She was DNR at [facility], and this status will be maintained. * Anticoagulation. Apixaban is adequate to prevent DVTs. Planning discharge to [place], goal of NIR[place]AL[place] level of function with discharge goal of 09/27/16. Subjective: No event, no complaints this a.m. Doing well per RN and MANAGER DEMAND, no distress noted. Objective: Vital Signs Temp Pulse Resp BP Pulse Ox 36.6 C 75 20 109/74 86 L 09/16/16 20:00 09/16/16 20:00 09/16/16 20:00 09/16/16 20:00 09/17/16 12:47 Laboratory Results 08/24/16 06:00 08/25/16 11:59 09/16/16 09/17/16 09/18/16 05:59 05:59 05:59 Intake Total 1104 826 320 Output Total 600 750 1 Balance 504 76 319 - Pending Discharge Pending Discharge Within 24 Hours: No Pending Discharge Within 48 Hours: No Physical Exam - Physical Exam General Appearance: alert, no apparent distress Neck: supple Respiratory: lungs clear (on NC), normal breath sounds Cardiac/Chest: regular rate, rhythm Abdomen: normal bowel sounds, non-tender, soft Neuro/Psych: alert, normal mood/affect, speech abnormalities (global aphasia) ICD10 Worksheet Patient Problems: Problems Problem Status Onset Aphasia due to recent cerebrovascular accident Acute Cerebrovascular accident (CVA) due to occlusion of left middle cerebral artery Acute DM2 (diabetes mellitus, type 2) Acute HTN (hypertension) Acute
[2016-09-17] MEDS: SENNOSIDES 1 TAB PO SCH (20:16)
[2016-09-18] MEDS: ATENOLOL 50 MG TAB PO SCH (07:47)
[2016-09-18] MEDS: FLUoxetine 20 MG CAP PO SCH (07:47)
[2016-09-18] MEDS: LISINOPRIL 20 MG TAB PO SCH (07:47)
[2016-09-18] MEDS: buPROPion 75 MG TAB PO SCH ×2 (07:48→20:08)
[2016-09-18] MEDS: FLUTICASONE NASAL 120 SPRAYS/16 GM MDI EACHNARE SCH ×2 (07:48→20:13)
[2016-09-18] MEDS: APIXABAN 5 MG TAB PO SCH ×2 (07:48→20:08)
[2016-09-18] MEDS: HYDROCHLOROTHIAZIDE 12.5 MG CAP PO SCH (07:48)
--- NOTE | 2016-09-18 11:50 | SOAPPROG ---
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. Improved motor function but dense global aphasia. FIM 39 as of 08/27/16 ; increased to 62 as of 09/03/16, to 76 as of 09/10/16, to 82 as of 09/14/16. Ambulates 400' limited by fatigue, and does 6 stairs SBA, no device. R neglect. I in room since 09/13/16. Set-up/S for dressing. Gets disorganized in the shower. Continue physical and occupational therapy to optimize mobility and activities of daily living. * Global aphasia: comprehension much improved. Perseverative. Improving. 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 * Atrial fibrillation. Continue rate control with atenolol and anticoagulation with apixaban. * Hypertension. Adequate control on atenolol 100 mg QD and lisinopril 20 mg QD. Hydralazine and amlodipine have been discontinued. * Urinary retention. Resolved with taper of hydralazine; D/C hydralazine today 08/31/16. Unclear if bethanechol was helpful was titrated to 20 mg QID and then tapered and D/C'd. * Urinary incontinence, appears to be resolved with scheduled toileting. * Hypoxia. CXR 09/03/16 with cardiomegaly but no pulmonary edema or effusion. Not clinically fluid-overloaded, no S/Sx pneumonia, on apixaban dose adequate to prevent or treat DVT/PE, has been on ACEI and diuretic re CHF. Continue efforts at incentive spirometry. Chronic/stable issues: * History of dyslipidemia with rash when she was treated with lovastatin. Dietary consult. * Diabetes mellitus type 2. Hemoglobin A1c 6.3. No indication for medication. Dietary consult. * Perirectal skin excoriation. Appreciate assistance of wound nurse. Resolved. * Depression. Both fluoxetine and bupropion appear to have been increased in the hospital. Affect appears improved.. * Obstructive sleep apnea. We will need to discuss with the family regarding whether she was managed with a CPAP mask or other device, and this should be implemented if possible. * Likely peripheral vascular disease with reduced pedal pulses on the right and reported history of right lower extremity venous ulcer. She will be monitored carefully, and her skin will be protected. * Code status. She was DNR at [facility], and this status will be maintained. * Anticoagulation. Apixaban is adequate to prevent DVTs. Planning discharge to [place], goal of [place] level of function with discharge goal of 09/27/16. 09/18/16 11:48 Subjective: No complaint. In good spirits. Objective: Vital Signs Temp Pulse Resp BP Pulse Ox 36.8 C 79 16 143/95 H 94 09/18/16 07:26 09/18/16 07:47 09/18/16 07:26 09/18/16 07:48 09/18/16 07:26 Laboratory Results 08/24/16 06:00 08/25/16 11:59 09/17/16 09/18/16 09/19/16 05:59 05:59 05:59 Intake Total 826 880 120 Output Total 750 401 Balance 76 479 120 Physical Exam - Physical Exam General Appearance: WD/WN, alert, no apparent distress Respiratory: normal breath sounds, No crackles, No rhonchi, No wheezing Cardiac/Chest: regular rate, rhythm, No edema Skin: normal color, warm/dry Neuro/Psych: no motor/sensory deficits, alert, normal mood/affect, aphasia ICD10 Worksheet Patient Problems: Problems Problem Status Onset Aphasia due to recent cerebrovascular accident Acute Cerebrovascular accident (CVA) due to occlusion of left middle cerebral artery Acute DM2 (diabetes mellitus, type 2) Acute HTN (hypertension) Acute
[2016-09-18] MEDS: SENNOSIDES 1 TAB PO SCH (20:08)
[2016-09-19] MEDS: FLUoxetine 20 MG CAP PO SCH (07:15)
[2016-09-19] MEDS: buPROPion 75 MG TAB PO SCH ×2 (07:15→20:03)
[2016-09-19] MEDS: ATENOLOL 50 MG TAB PO SCH (07:15)
[2016-09-19] MEDS: FLUTICASONE NASAL 120 SPRAYS/16 GM MDI EACHNARE SCH ×2 (07:16→20:02)
[2016-09-19] MEDS: LISINOPRIL 20 MG TAB PO SCH (07:16)
[2016-09-19] MEDS: APIXABAN 5 MG TAB PO SCH ×2 (07:16→20:03)
[2016-09-19] MEDS: HYDROCHLOROTHIAZIDE 12.5 MG CAP PO SCH (07:16)
--- NOTE | 2016-09-19 10:03 | SOAPPROG ---
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 Improved motor function but dense global aphasia. FIM 39 as of 08/27/16 ; increased to 62 as of 09/03/16, to 76 as of 09/10/16, to 82 as of 09/14/16. Ambulates 400' limited by fatigue, and does 6 stairs SBA, no device. R neglect. I in room since 09/13/16. Set-up/S for dressing. Gets disorganized in the shower. Continue physical and occupational therapy to optimize mobility and activities of daily living. * Global aphasia: comprehension much improved. Perseverative. Improving. 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 * Atrial fibrillation. Continue rate control with atenolol and anticoagulation with apixaban. * Hypertension. Adequate control on atenolol 100 mg QD and lisinopril 20 mg QD. Hydralazine and amlodipine have been discontinued. * Urinary retention. Resolved with taper of hydralazine; D/C hydralazine today 08/31/16. Unclear if bethanechol was helpful was titrated to 20 mg QID and then tapered and D/C'd. * Urinary incontinence, appears to be resolved with scheduled toileting. * Hypoxia. CXR 09/03/16 with cardiomegaly but no pulmonary edema or effusion. Not clinically fluid-overloaded, no S/Sx pneumonia, on apixaban dose adequate to prevent or treat DVT/PE, has been on ACEI and diuretic re CHF. Continue efforts at incentive spirometry. Chronic/stable issues: * History of dyslipidemia with rash when she was treated with lovastatin. Dietary consult. * Diabetes mellitus type 2. Hemoglobin A1c 6.3. No indication for medication. Dietary consult. * Perirectal skin excoriation. Appreciate assistance of wound nurse. Resolved. * Depression. Both fluoxetine and bupropion appear to have been increased in the hospital. Affect appears improved.. * Obstructive sleep apnea. We will need to discuss with the family regarding whether she was managed with a CPAP mask or other device, and this should be implemented if possible. * Likely peripheral vascular disease with reduced pedal pulses on the right and reported history of right lower extremity venous ulcer. She will be monitored carefully, and her skin will be protected. * Code status. She was DNR at [facility], and this status will be maintained. * Anticoagulation. Apixaban is adequate to prevent DVTs. Planning discharge to [place], goal of [place] level of function with discharge goal of 09/27/16. 09/19/16 10:02 Subjective: No complaints. Says "better." Objective: Vital Signs Temp Pulse Resp BP Pulse Ox 36.4 C 79 16 142/88 H 94 09/19/16 07:23 09/19/16 07:23 09/19/16 07:23 09/19/16 07:23 09/19/16 07:23 Laboratory Results 08/24/16 06:00 08/25/16 11:59 09/18/16 09/19/16 09/20/16 05:59 05:59 05:59 Intake Total 880 690 Output Total 401 150 Balance 479 540 Physical Exam - Physical Exam General Appearance: WD/WN, alert, no apparent distress, obese Respiratory: normal breath sounds, No crackles, No rhonchi, No wheezing Cardiac/Chest: regular rate, rhythm, No edema Skin: normal color, warm/dry Neuro/Psych: no motor/sensory deficits, alert, normal mood/affect, aphasia ICD10 Worksheet Patient Problems: Problems Problem Status Onset Aphasia due to recent cerebrovascular accident Acute Cerebrovascular accident (CVA) due to occlusion of left middle cerebral artery Acute DM2 (diabetes mellitus, type 2) Acute HTN (hypertension) Acute
[2016-09-19] MEDS: SENNOSIDES 1 TAB PO SCH (20:03)
[2016-09-20] MEDS: FLUoxetine 20 MG CAP PO SCH (07:23)
[2016-09-20] MEDS: HYDROCHLOROTHIAZIDE 12.5 MG CAP PO SCH (07:23)
[2016-09-20] MEDS: buPROPion 75 MG TAB PO SCH ×2 (07:24→20:34)
[2016-09-20] MEDS: ATENOLOL 50 MG TAB PO SCH (07:24)
[2016-09-20] MEDS: APIXABAN 5 MG TAB PO SCH ×2 (07:24→20:32)
[2016-09-20] MEDS: LISINOPRIL 20 MG TAB PO SCH (07:24)
[2016-09-20] MEDS: FLUTICASONE NASAL 120 SPRAYS/16 GM MDI EACHNARE SCH ×2 (07:25→23:00)
--- NOTE | 2016-09-20 10:49 | SOAPPROG ---
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 Improved motor function but dense global aphasia. FIM 39 as of 08/27/16 ; increased to 62 as of 09/03/16, to 76 as of 09/10/16, to 82 as of 09/14/16. Ambulates 400' limited by fatigue, and does 6 stairs SBA, no device. R neglect. I in room since 09/13/16. Set-up/S for dressing. Gets disorganized in the shower. Continue physical and occupational therapy to optimize mobility and activities of daily living. * Global aphasia: comprehension much improved and expression improving but still very limited. Continue DECAL APPLIER. * Atrial fibrillation. Continue rate control with B-shandra and anticoagulation with apixaban. * Hypertension. Consistent elevation in AM. Will d/c atenolol 100 mg QD and initiate metoprolol 50 mg BID starting 09/20/16 for better 24 hour coverage. Continue lisinopril and HCTZ. Hydralazine and amlodipine have been discontinued. * Urinary retention. Resolved with taper of hydralazine; D/C hydralazine today 08/31/16. Unclear if bethanechol was helpful was titrated to 20 mg QID and then tapered and D/C'd. * Urinary incontinence, appears to be resolved with scheduled toileting. * Hypoxia. CXR 09/03/16 with cardiomegaly but no pulmonary edema or effusion. Not clinically fluid-overloaded, no S/Sx pneumonia, on apixaban dose adequate to prevent or treat DVT/PE, has been on ACEI and diuretic re CHF. Continue efforts at incentive spirometry. Chronic/stable issues: * History of dyslipidemia with rash when she was treated with lovastatin. Dietary consult. * Diabetes mellitus type 2. Hemoglobin A1c 6.3. No indication for medication. Dietary consult. * Perirectal skin excoriation. Appreciate assistance of wound nurse. Resolved. * Depression. Both fluoxetine and bupropion appear to have been increased in the hospital. Affect appears improved.. * Obstructive sleep apnea. We will need to discuss with the family regarding whether she was managed with a CPAP mask or other device, and this should be implemented if possible. * Likely peripheral vascular disease with reduced pedal pulses on the right and reported history of right lower extremity venous ulcer. She will be monitored carefully, and her skin will be protected. * Code status. She was DNR at [facility], and this status will be maintained. * Anticoagulation. Apixaban is adequate to prevent DVTs. Planning discharge to [facility] 09/21/16. 09/20/16 10:46 Subjective: No complaints. Discussed medications and she said "many pills." Aware of discharge plan to [facility] tomorrow. Objective: Vital Signs Temp Pulse Resp BP Pulse Ox 36.8 C 70 16 146/91 H 90 L 09/20/16 06:22 09/20/16 07:24 09/20/16 06:22 09/20/16 07:24 09/20/16 06:22 Laboratory Results 08/24/16 06:00 08/25/16 11:59 09/19/16 09/20/16 09/21/16 05:59 05:59 05:59 Intake Total 690 472 120 Output Total 150 Balance 540 472 120 Physical Exam - Physical Exam General Appearance: WD/WN, alert, no apparent distress Respiratory: normal breath sounds, No crackles, No rhonchi, No wheezing Cardiac/Chest: regular rate, rhythm, No edema Skin: normal color, warm/dry Neuro/Psych: alert, normal mood/affect ICD10 Worksheet Patient Problems: Problems Problem Status Onset Aphasia due to recent cerebrovascular accident Acute Cerebrovascular accident (CVA) due to occlusion of left middle cerebral artery Acute DM2 (diabetes mellitus, type 2) Acute HTN (hypertension) Acute
--- NOTE | 2016-09-20 11:04 | PDOREHIP ---
Admission [facility] - Admission - 3 Day Assessment Period Admission Date/Day 1: 08/23/16 Day 2: 08/24/16 Day 3: 08/25/16 Discharge [facility] - Discharge - 3 Day Assessment Period 2 Days Prior to Anticipated Discharge Date: 09/19/16 1 Day Prior to Anticipated Discharge Date: 09/20/16 Anticipated Discharge Date: 09/21/16 - Discharge Skin Conditions Unhealed Pressure Ulcer (1 or more/Stage 1 or >)-Discharge: 0. No
[2016-09-20] MEDS ORDERED: METOPROLOL TARTRATE 25 MG TAB PO ONE ×2 (20:00→21:00)
[2016-09-20] MEDS: SENNOSIDES 1 TAB PO SCH (20:34)
[2016-09-21 07:07] VITALS: RESP 18; TEMP 97.5; O2SAT 96
[2016-09-21] MEDS ORDERED: METOPROLOL TARTRATE 50 MG TAB PO SCH (09:00)
[2016-09-21] MEDS: APIXABAN 5 MG TAB PO SCH (09:56)
[2016-09-21] MEDS: buPROPion 75 MG TAB PO SCH (09:56)
[2016-09-21] MEDS: HYDROCHLOROTHIAZIDE 12.5 MG CAP PO SCH (09:57)
[2016-09-21] MEDS: FLUoxetine 20 MG CAP PO SCH (09:57)
[2016-09-21] MEDS: LISINOPRIL 20 MG TAB PO SCH (09:57)
[2016-09-21 09:58] VITALS: BP 110/60; PULSE 80
[2016-09-21] MEDS: FLUTICASONE NASAL 120 SPRAYS/16 GM MDI EACHNARE SCH (09:58)
--- NOTE | 2016-09-21 15:17 | GDS ---
[f rep st] DISCHARGE SUMMARY ADMISSION DIAGNOSIS: Cerebrovascular accident. DISCHARGE DIAGNOSES: 1. Cerebrovascular accident. 2. Atrial fibrillation. 3. Hypertension. CONSULTATIONS: None. COMPLICATIONS: None. PROCEDURES: None. HISTORY AND HOSPITAL COURSE: The patient was admitted from [facility]. She initially presented to [facility] with right-sided paralysis, facial droop and aphasia. She has a history of atrial fibrillation, but was subtherapeutic on her warfarin with an INR approximately a week prior of 1.4. She was transferred emergently to [facility], where she underwent an interventional thrombectomy, which opened up a left middle cerebral artery occlusion. When she was initially admitted she had right-sided weakness, ataxia and global aphasia. Her initial functional independence measure was 39 on 08/27/2016, which is consistent with a low level of retirement function, needing assistance with all activities of daily living. She was able to ambulate 20 feet with a front-wheeled walker. She had right hemineglect, and she had dense global aphasia. She had steady improvement in her function, and by 09/15/2015 her functional independence measure had improved to 82, which is consistent with assisted living facility level of care. She was ambulating 400 feet with no device. She had climbed 6 stairs with standby assist and no device. She still had right neglect, however , she was able to function independently in her room. It was noted that she would get disorganized in the shower, but otherwise was safe. When she was admitted she had painful perineal excoriation. The wound care nnurse was consulted. This resolved with improved skin care. Her aphasia improved, comprehension was very much improved. She had developed spontaneous speech with simple 1 or 2 word sentences, but still had neologisms. She was able to write names of her children and grandchildren. She had improved to a moderate receptive aphasia, but continued to have a moderate to severe expressive aphasia. Regarding hypertension: She was noted to have elevated blood pressure in the morning, she had been on atenolol 100 mg daily as well as lisinopril, and hydrochlorothiazide. She had previously been on hydralazine but had urinary retention, which resolved when hydralazine was discontinued, and was on amlodipine. Her atenolol was discontinued, and she was begun on metoprolol 50 mg b.i.d., to improve 24-hour coverage. She had hypoxia. Chest x-ray done on 09/03/2016 showed cardiomegaly, but no pulmonary edema or effusions. She had no lower extremity edema and did not appear fluid overloaded. She was not evaluated for DVT or pulmonary embolus, as she had no other symptoms consistent with these diagnoses, and she was anticoagulated with apixaban in any case. Additionally, regarding possible congestive heart failure, she was taking an OZ inhibitor as well as a diuretic. She has a history of diabetes mellitus type 2. Her hemoglobin A1c was 6.3, considerably lower than the target given her age, and no medication was initiated. She has a history of depression. Fluoxetine and bupropion were increased at [facility]. Subsequently she did not have a depressive affect, and as her language skills improved, she had no complaints regarding depression. PHYSICAL EXAM: VITAL SIGNS: On the day of discharge, vital signs, blood pressure is 110/60, heart rate is 80, respiratory rate is 18, oxygen saturation is 96% on 1 L, temperature is 36.4 degrees centigrade. GENERAL: This is a well -nourished, well-developed obese woman, who appears her chronologic age, cooperative, and in no acute distress. HEART: There is an irregular rhythm, there are no murmurs, rubs or gallops. LUNGS: Clear to auscultation bilaterally. ABDOMEN: Soft, nontender, nondistended, with normoactive bowel sounds. EXTREMITIES: There is no cyanosis, clubbing or edema. NEUROLOGIC: She is alert, she responds appropriately to simple commands regarding the physical exam. She is able to speak in 1 or 2 words sentences, primarily with social greetings and social interactions, however, she also has limited spontaneous speech otherwise. There is no focal weakness. Sensation is intact to light touch. She is able to ambulate independently, with a somewhat wide- based gait, but a normal step through pattern. LABORATORY DATA: Laboratories and studies during her stay: A CBC on 2016 showed a slightly elevated white blood cell count at 10.71 with no left shift. She also had a slightly high hematocrit at 48.1. Serum chemistry on 08/2016 revealed overall normal renal function and electrolytes, though she appeared a bit dehydrated with a BUN of 24 and a creatinine of 0.9. Liver functions were overall within normal limits but for a slightly low albumin of 3.1. Hemoglobin A1c was 6.3 on 08/25/2016. She had increased dehydration with a BUN of 27 and a creatinine of 1.1. She initially needed IV fluids due to her dehydration, but subsequently her oral intake improved. Urinalysis done on 08/2016 and on 08/30/2016 were overall within normal limits. On 08/30/2016 she had an elevated urobilinogen of 4, there was trace leukocyte esterase, but there was not a robust leukocytosis in the urine with 10-15 white blood cells. Urine microbiology grew enterococcus, which was resistant to tetracycline but otherwise pansensitive, and as she never had any symptoms of a urinary tract infection this was not treated. CONDITION UPON DISCHARGE: Good. ACTIVITY: Ad mary. DIET: Regular. Date of next appointment: She will follow up with Dr. Raghu Shepherd, who will be her new primary care provider at [facility], to which she is discharging. DISCHARGE MEDICATIONS: 1. Hydrochlorothiazide 25 mg p.o. daily. 2. Metoprolol 50 mg p.o. twice daily. 3. Senna 1 p.o. at bedtime. 4. Acetaminophen 650 mg p.o. q.4 hours p.r.n. pain. 5. Apixaban 5 mg p.o. twice daily. 6. Bupropion SR 150 mg p.o. daily. 7. Fluoxetine 40 mg p.o. daily. 8. Fluticasone nasal spray, 2 sprays nasal twice daily. 9. Lisinopril 40 mg p.o. daily. ISSUES: To be addressed at followup: 1. Expressive aphasia. She will continue to have therapy with speech and language pathology, and she can follow up with Dr. Shepherd. 2. Blood pressure with recent adjustment in her beta shandra. Observe for adequate control and followup with Dr. Shepherd. 3. Hypoxia, which had some improvement during her stay. Consider echocardiogram and more specific management regarding possible congestive heart failure, continue oxygen, and she can follow up with Dr. Shepherd. Greater than 30 minutes were spent on this discharge, including medication management, physical exam, counseling the patient, and coordination of care. /[id number]/MODL MTDD
== END 2016-09-21 13:58 | DRG 57 ==
LOC: BREH 12:26
PROVIDERS: ADMIT Internal Medicine; ATTEND Internal Medicine
PROC: F07M3ZZ Motor Function Treatment of Musculoskeletal System - Whole Body (ICD-10-PCS; principal; 2016-08-23)
PROC: F08Z7ZZ Vocational Activities and Functional Community or Work Reintegration Skills Treatment (ICD-10-PCS; principal; 2016-08-23)
PROC: F0636ZZ Communicative/Cognitive Integration Skills Treatment of Neurological System - Whole Body (ICD-10-PCS; principal; 2016-08-23)
DX: I69.320 Aphasia following cerebral infarction (principal); I69.351 Hemiplegia and hemiparesis following cerebral infarction affecting right dominant side; I48.91 Unspecified atrial fibrillation; E78.5 Hyperlipidemia, unspecified; E11.9 Type 2 diabetes mellitus without complications; F32.9 Major depressive disorder, single episode, unspecified; I10 Essential (primary) hypertension; G47.33 Obstructive sleep apnea (adult) (pediatric); I87.2 Venous insufficiency (chronic) (peripheral); L97.211 Non-pressure chronic ulcer of right calf limited to breakdown of skin; L98.8 Other specified disorders of the skin and subcutaneous tissue; E66.09 Other obesity due to excess calories; Z68.36 Body mass index [BMI] 36.0-36.9, adult; Z86.73 Personal history of transient ischemic attack (TIA), and cerebral infarction without residual deficits; Z79.01 Long term (current) use of anticoagulants; R32 Unspecified urinary incontinence; Z66 Do not resuscitate; R33.9 Retention of urine, unspecified; R21 Rash and other nonspecific skin eruption; R09.02 Hypoxemia
CPT/HCPCS: 92507-GN; 92522-GN; 92526-GN; 92610-GN; 97110-GO; 97110-GP; 97112-GP; 97116-GP; 97162-GP; 97167-GO; 97530-GO; 97530-GP; 97532-GO; 97535-GO; 99366-GO